=== PATIENT | male | born 1950 ===

== ENCOUNTER 2021-06-19 12:35 | Emergency (ER) | payer OTHER ==
[~2021-06-19] VITALS: Ht 180.3 cm; Wt 51.3 kg
[2021-06-19 13:37] LABS: BASOPHILS ABSOLUTE AUTO 0.03 K/mm3 (0.00-0.23); BASOPHILS PERCENT AUTO 1 % (0-2); EOSINOPHILS PERCENT AUTO 4 % (0-6); Hemoglobin 12.8 g/dL (13.5-17.5); IMMATURE GRAN ABSOLUTE AUTO 0.01 K/mm3 (0.00-0.10); IMMATURE GRAN PERCENT AUTO 0 % (0-1); LYMPHOCYTES ABSOLUTE AUTO 0.96 K/mm3 (0.84-5.20); LYMPHOCYTES PERCENT AUTO 20 % (21-46); MONOCYTES ABSOLUTE AUTO 0.42 K/mm3 (0.16-1.47); MONOCYTES PERCENT AUTO 9 % (4-13); Mean Corpuscular HGB 31.7 pg (26.0-34.0); Mean Corpuscular HGB Conc 32.8 g/dL (31.5-36.5); Mean Corpuscular Volume 97 fL (80-100); Mean Platelet Volume 9.7 fL (9.1-12.4); NEUTROPHILS ABSOLUTE AUTO 3.15 K/mm3 (1.96-9.15); NEUTROPHILS PERCENT AUTO 66 % (41-73); Platelet Count 292 K/mm3 (150-400); RDW Coefficient Variation 13.7 % (11.7-14.2); RDW Standard Deviation 48.9 fL (35.1-46.3); Red Blood Cell Count 4.04 M/mm3 (4.30-5.90); White Blood Cell Count 4.77 K/mm3 (4.00-11.30)
[2021-06-19 13:54] LABS: Alanine Aminotransfer (ALT/SGP 33 U/L (12-78); Albumin, Blood 3.7 g/dL (3.4-5.0); Albumin/Globulin Ratio 0.9 (0.8-1.8); Alk Phos 66 U/L (50-136); Anion Gap 5 mmol/L (6-16); Aspartate Aminotrans (AST/SGOT 25 U/L (12-37); Bilirubin, Total 0.7 mg/dL (0.1-1.0); Blood Urea Nitrogen 14 mg/dL (8-24); Bun/Creatinine Ratio 18.6 (12.0-20.0); CO2, Blood 29 mmol/L (21-32); Calcium, Blood 9.5 mg/dL (8.5-10.1); Chloride, Blood 105 mmol/L (98-108); Creatinine, Blood 0.75 mg/dL (0.60-1.20); Globulin, Blood 4.1 g/dL (2.2-4.0); Glomerular Filtration Rate >60 (60-); Glucose, Blood 88 mg/dL (70-99); Potassium, Blood 3.7 mmol/L (3.5-5.5); Sodium, Blood 139 mmol/L (136-145); Total Protein, Blood 7.8 g/dL (6.4-8.2)
[2021-06-19] MEDS ORDERED: GLAUCOMA DROPS (13:56)
[2021-06-19 13:57] LABS: Magnesium, Blood 2.5 mg/dL (1.6-2.4)
== END 2021-06-19 17:24 | disposition home or self-care (01) ==
LOC: ER 12:35
PROVIDERS: Emergency Medicine Emergency Medical Services; Student in an Organized Health Care Education/Training Program
DX: R19.5 Other fecal abnormalities (principal); D64.9 Anemia, unspecified; R63.4 Abnormal weight loss; Z68.1 Body mass index [BMI] 19.9 or less, adult
CPT/HCPCS: 74177; 80053; 83690; 83735; 85025; 99284-25; Q9967

== ENCOUNTER 2021-09-01 07:29 | Inpatient (IN) | payer OTHER ==
[~2021-09-01] VITALS: Ht 182.9 cm; Wt 63.2 kg
[~2021-09-01 07:29] MED LIST: GLAUCOMA DROPS
[2021-09-01 08:10] LABS: BASOPHILS ABSOLUTE AUTO 0.01 K/mm3 (0.00-0.23); BASOPHILS PERCENT AUTO 1 % (0-2); EOSINOPHILS ABSOLUTE AUTO 0.01 K/mm3 (0.00-0.68); EOSINOPHILS PERCENT AUTO 1 % (0-6); Hematocrit 45.2 % (37.0-53.0); Hemoglobin 14.5 g/dL (13.5-17.5); IMMATURE GRAN ABSOLUTE AUTO 0.01 K/mm3 (0.00-0.10); IMMATURE GRAN PERCENT AUTO 1 % (0-1); LYMPHOCYTES ABSOLUTE AUTO 0.25 K/mm3 (0.84-5.20); LYMPHOCYTES PERCENT AUTO 18 % (21-46); MONOCYTES ABSOLUTE AUTO 0.03 K/mm3 (0.16-1.47); MONOCYTES PERCENT AUTO 2 % (4-13); Mean Corpuscular HGB 31.7 pg (26.0-34.0); Mean Corpuscular HGB Conc 32.1 g/dL (31.5-36.5); Mean Corpuscular Volume 99 fL (80-100); Mean Platelet Volume 9.3 fL (9.1-12.4); NEUTROPHILS ABSOLUTE AUTO 1.11 K/mm3 (1.96-9.15); NEUTROPHILS PERCENT AUTO 78 % (41-73); Platelet Count 178 K/mm3 (150-400); RDW Coefficient Variation 12.9 % (11.7-14.2); RDW Standard Deviation 47.4 fL (35.1-46.3); Red Blood Cell Count 4.57 M/mm3 (4.30-5.90); White Blood Cell Count 1.42 K/mm3 (4.00-11.30)
[2021-09-01 08:39] LABS: Albumin, Blood 3.6 g/dL (3.4-5.0); Albumin/Globulin Ratio 0.9 (0.8-1.8); Bilirubin, Total 0.9 mg/dL (0.1-1.0); Bun/Creatinine Ratio 17.3 (12.0-20.0); Calcium, Blood 9.9 mg/dL (8.5-10.1); Creatinine, Blood 1.33 mg/dL (0.60-1.20); Globulin, Blood 4.2 g/dL (2.2-4.0); Potassium, Blood 3.5 mmol/L (3.5-5.5); Total Protein, Blood 7.8 g/dL (6.4-8.2)
[2021-09-01 09:02] LABS: Source, Urine Catheter
[2021-09-01 09:08] LABS: Appearance, Urine Cloudy (Clear); Bilirubin, Urine Neg (Neg); Blood, Urine 5+ (Neg); Color, Urine Amber (P-Yellow); Glucose Qualitative, Urine Neg (Neg); Ketones, Urine Neg (Neg); Leukocyte Esterase, Urine 3+ (Neg); Nitrite, Urine Neg (Neg); Protein, Urine 3+ (Neg); Specific Gravity, Urine 1.015 (1.003-1.022); Urobilinogen, Urine NORM (Normal)
[2021-09-01 09:20] LABS: Red Blood Cells, Urine 50-100 /hpf (0-2); White Blood Cells, Urine 50-100 /hpf (0-5)
[2021-09-01 09:22] LABS: Bacteria Many /hpf; Squamous Epithelial Cells Not Seen /hpf (Few)
[2021-09-01 10:20] LABS: Influenza A, PCR NEGATIVE (NEGATIVE); Influenza B, PCR NEGATIVE (NEGATIVE); Resp Syncytial Virus, PCR NEGATIVE (NEGATIVE); SARS-Cov-2 (COVID-19) PCR, MMC NEGATIVE (NEGATIVE)
--- NOTE | 2021-09-01 14:13 | NUR ---
1315 PT RECEIVED TO ROOM I WAS LEAVING FOR LUNCH. VS 95/63 O2 99 2L. PT ALERT, SELF,DATE, PLACE, FAMILY. LUNGS CRACKLES BASES. ON 2L O2. NO EDEMA. NO TELE H/R REG, NO MURMER NOTED. VAZQUEZ CATH DRAINING ABOUT 1/2 CUP RED FLUID. 1400 PT REMAINS AWAKE. TRANSFERRING PT TO PCU. PRESSURE 73/58. P 100. SAT 100% 2L. CALLING
--- NOTE | 2021-09-01 14:23 | NUR ---
PT BP DROPPED. TURNED FLUIDS UP. CALLED DR ARIAS. LAMIN ARREGUIN NOW. PCU OR ICU. OKAY BOLUS AND TRANSFER.
--- NOTE | 2021-09-01 15:01 | NUR ---
TRANSFERRED PT TO ICU 7 . REPORT GIVEN BEDSIDE TO RN.
--- NOTE | 2021-09-01 15:10 | NUR ---
PT TRANSFERRED TO ICU 7 FROM MEDICAL FLOOR. UPON ARRIVAL PT WAS FINISHING IVF BOLUS. SYSTOLIC BP'S WERE IN THE 90'S, MAP WAS >65. PT IS ALERT AND ORIENTEDx3, SLOW TO RESPOND TO QUESTIONS AND FOLLOWS DIRECTIONS. VAZQUEZ IN PLACE WITH RED TINGED DARK URINE DRAINING. PT ON 3L OF O2 MAINTAINING SPO2 >92%, DIFFICULT GETTING GOOD SPO2 READING DUE TO COOL FINGERS. MONITOR SHOWS PT TO BE IN SINUS TACH WITH RATES LOW 100'S. 2ND IV STARTED, PT ORIENTED TO ROOM. BED ALARM PLACED PT HAS FALLEN RECENTLY.
[2021-09-01] MEDS ORDERED: TIMDOROPSO BOTHEYES (17:19)
[2021-09-01] MEDS ORDERED: KETO.5OPSO RIGHTEYE (17:20)
[2021-09-01] MEDS ORDERED: LATA.005SO BOTHEYES (17:20)
--- NOTE | 2021-09-01 18:33 | NUR ---
SHIFT SUMMARY PT IS ALERT AND ORIENTED, FOLLOWS COMMANDS. PT NOTED TO HAVE SLIGHT TREMORS, WHICH FAMILY AND PT REPORT IS NORMAL FOR HIM. THIS AFTERNOON AFTER ARRIVAL TO ICU, PT WAS INITIATED ON 2MCG/MIN LEVOPHED AND HAS MAINTAINED MAP >65. PT HAS REQUIRED NO CHANGE IN O2 OF 3L, WHICH SP02 HAS BE ABOVE 92%. PT HAS 2 PIV AND HAS IVF RUNNING PER ORDER. MONITOR HAS SHOWN PT TO BE IN SINUS TACH WITH RATES, LOW 100'S. FAMILY REQUESTS FIRST CONTACT BE BRANDYN AZEVEDO (SISTER) CELL [phone], IF ANY OTHER CONCERNS CONTACT CORRIE (NEICE) [phone]. PT'S SISTER EXPRESSED CONCERN OVER PT'S ABILITY TO CARE FOR HIMSELF OUTSIDE OF THE HOSPITAL. THEY [facility]CTED THE [facility] AND HAVE BEEN ATTEMPTING TO OBTAIN PLACEMENT. THEY REPORT HE HAS AN APPOINTMENT WITH [facility] Sep. FAMILY ALSO REPORTS PT HAD DELUSIONS IN THE PAST AND BEEN AGGRESSIVE TOWARDS FAMILY.
--- NOTE | 2021-09-01 20:24 | NUR ---
PATIENT RESTING IN BED QUIETLY. A&O X4. MAEW. NO COMPLAINTS. BIOX 96% ON 3L/NC TITRATED DOWN TO 2L/NC PATIENT VERBALIZED THAT HE DOESN'T WEAR OXYGEN AT HOME. HYPOTENSION CONTINUES, LEVOPHED 2MCG TO KEEP MAP >65. PATIENT HAS CHRONIC VAZQUEZ. VAZQUEZ DRAINING TREY URINE WITH SEDIMENT.
--- NOTE | 2021-09-01 22:17 | NUR ---
DOCTOR TLTORI NOTIFIED OF BLOOD CX. PLAN TO CONTINUE SAME ANTIBIOTICS
[2021-09-02 03:27] LABS: Hemoglobin 11.4 g/dL (13.5-17.5); Mean Corpuscular HGB 31.5 pg (26.0-34.0); Mean Corpuscular HGB Conc 32.6 g/dL (31.5-36.5); Mean Corpuscular Volume 97 fL (80-100); Mean Platelet Volume 10.4 fL (9.1-12.4); Platelet Count 123 K/mm3 (150-400); RDW Coefficient Variation 13.4 % (11.7-14.2); Red Blood Cell Count 3.62 M/mm3 (4.30-5.90); White Blood Cell Count 32.22 K/mm3 (4.00-11.30)
[2021-09-02 03:43] LABS: BAND PERCENT MAN 27 % (0-8); BASOPHILS PERCENT MAN 0 % (0-2); EOSINOPHILS PERCENT MAN 0 % (0-6); LYMPHOCYTES ABSOLUTE MAN 0.32 K/mm3 (0.84-5.20); LYMPHOCYTES PERCENT MAN 1 % (21-46); METAMYELOCYTE ABSOLUTE MAN 0.64 K/mm3 (0.00-0.00); METAMYELOCYTE PERCENT MAN 2 % (0-0); MONOCYTES ABSOLUTE MAN 1.61 K/mm3 (0.16-1.47); MONOCYTES PERCENT MAN 5 % (4-13); MYELOCYTE ABSOLUTE MAN 0.64 K/mm3 (0.00-0.00); MYELOCYTE PERCENT MAN 2 % (0-0); NEUTROPHILS ABSOLUTE MAN 28.99 K/mm3 (1.96-9.15); SEG NEUTROPHILS PERCENT MAN 63 % (41-73); TOTAL CELLS COUNTED 100
[2021-09-02 04:30] LABS: Alanine Aminotransfer (ALT/SGP 34 U/L (12-78); Albumin, Blood 2.2 g/dL (3.4-5.0); Albumin/Globulin Ratio 0.7 (0.8-1.8); Alk Phos 66 U/L (50-136); Anion Gap 6 mmol/L (6-16); Aspartate Aminotrans (AST/SGOT 46 U/L (12-37); Bilirubin, Total 0.6 mg/dL (0.1-1.0); Blood Urea Nitrogen 28 mg/dL (8-24); CO2, Blood 22 mmol/L (21-32); Chloride, Blood 118 mmol/L (98-108); Creatinine, Blood 1.12 mg/dL (0.60-1.20); Globulin, Blood 3.3 g/dL (2.2-4.0); Glomerular Filtration Rate >60 (60-); Glucose, Blood 81 mg/dL (70-99); Sodium, Blood 146 mmol/L (136-145)
[2021-09-02 05:15] LABS: Total Protein, Blood 5.5 g/dL (6.4-8.2)
--- NOTE | 2021-09-02 06:41 | NUR ---
SUMMARY PATIENT AWAKE MOST OF THE NIGHT. REMAINS A&O X4 YET REPEATS QUESTIONS AT TIMES. HYPOTENSION CONTINUES LEVOPHED TITRATED TO 7 MCG. CONTINUES TO HAVE SMALL AMT OF BLOODY DRAINAGE FROM URETHRA, VAZQUEZ DRAINING SMALL AMT OF DARK TREY URINE WITH SEDIMENT.
--- NOTE | 2021-09-02 08:30 | NUR ---
ASSUMED CARE RECEIVED REPORT FROM CINTIA JUAREZ RN AT 0700. HE IS A&O X4, AND COOPERATIVE. HE IS SOMEWHAT SLOW TO RESPOND AND SEEMS A LITTLE FORGETFUL, QUESTIONS AND/OR INSTRUCTIONS NEED TO BE REPEATED OFTEN. LUNGS ARE CLEAR, 2L NC, SPO2 >92%, UNLABORED AND NO SOB/DYSPNEA. HR IS SR WITH MULTIPLE PVC'S AND BBB. LEVOPHED GTT ON AT 7MCG/MIN FOR HYPOTENSION, MAP >65. BOWEL TONES ACTIVE X4, PT ON VEGETARIAN DIET. VAZQUEZ PATENT, DRAINING TREY URINE TO GRAVITY. BLOOD COMING FROM URETHRA R/T TRAUMATIC REMOVAL PREVIOUSLY. ORDERS REVIEWED AND WILL TREAT PRESCRIBED.
--- NOTE | 2021-09-02 11:07 | NUR ---
PHONE CALL WITH PT'S SISTER, YUE NAZARIO, AND SHE IS REQUESTING HE HAVE A PSYCH EVAL DONE. ACCORDING TO HER, THE PT HAS HAD MULTIPLE PARANOID EPISODES AT HOME. THESE HAVE CAUSED HIM TO MISS MULTIPLE APPOINTMENTS WITH THE [facility], AND SHE BELIEVES IS INTERFERING WITH HIS HEALTH AND IS THE REASON HE PULLED HIS CATHETER OUT. CALL PLACED TO DR. ARIAS, AND PSYCH EVAL WITH DR. GOINS ORDERED.
--- NOTE | 2021-09-02 15:20 | NUR ---
PT HAS BEEN HAVING PVC'S T/O THE DAY AND RATE IS SLOWLY INCREASING FROM 70'S TO 90'S. CALL PLACED TO DR. ARIAS AND ORDERS GIVEN FOR 1000MG OF MAGNESIUM IVPB TO KEEP AT 2.0 OR ABOVE. WILL ALSO MONITOR TO ENSURE POTASSIUM MAINTAINS AT 4.0 OR ABOVE.
--- NOTE | 2021-09-02 18:14 | NUR ---
PT A&O X4 T/O SHIFT, PLEASANT AND COOPERATIVE. FEBRILE WITH LOW GRADE TEMP OF 99.8, MEDICATED WITH PRN PO TYLENOL. PT WAS UP TO THE CHAIR AND ABLE TO USE BEDSIDE COMMODE WITH WALKER AND MINIMAL ASSISTANCE, BUT DOES HAVE TO BE REDIRECTED OFTEN. 2L NC REMAINED ON T/O SHIFT, SPO2 >96%, LUNGS CLEAR. HR WAS SR TO ST, RATE 80-100'S, WITH FREQUENT PVC'S. 1GRAM OF MAGNESIUM ADMINISTERED. BP REMAINED STABLE WITH LEVOPHED OFF AT 1330, MAP >65. PT UP TO CHAIR OR UP IN BED FOR MEALS, BUT REPORTS SMALL APPETITE AND MINIMALLY ATE AT EACH MEAL. SMALL BOWEL MOVEMENT THIS SHIFT. VAZQUEZ CONTINUES TO BLEED FROM URETHRA, BUT DOES NOT APPEAR TO HAVE WORSENED, IS PATENT AND DRAINING TREY URINE. DENIED PAIN ALL SHIFT. WILL REPORT TO ONCOMING SHIFT.
--- NOTE | 2021-09-02 18:40 | NUR ---
PT'S NIECE, BRANDYN, AT BEDSIDE SHE NEEDED HIM TO SIGN TRAFFIC/COURT DOCUMENTS. THIS NURSE WENT TO REMOVE HIS DINNER TRAY AND THE NIECE WAS VERY CONCERNED WITH HOW LITTLE THE PT IS EATING. SHE TOLD HIM TO "TAKE ONE BITE OF MEATBALL OR ELSE SHE WOULD REMOVE HIS COOKIES FROM THE ROOM," YET HE CONTINUED TO REFUSE. SHE REPORTS HE DOES NOT EAT WELL AT HOME AND IS CONCERNED WITH NUTRITION. ADVISED HER THAT THERE ARE OTHER OPTIONS WE MAY PROVIDE IF MALNUTRITION IS A PROBLEM.
--- NOTE | 2021-09-02 20:10 | NUR ---
PATIENT RESTING QUIETLY IN BED, A&OX3 SLIGHTLY FORGETFUL AT TIMES. MAEW. TREMOR SEEN WITH ACTIVITY. LEVOPHED REMAINS OFF. PATIENT VERBALIZED THAT HE IS FEELING BETTER TODAY. IS AGREEABLE TO SLEEPING PILL TONIGHT TO HELP HIM SLEEP. VAZQUEZ REMAINS IN PLACE SMALL AMT OF BLEEDING FROM URETHRA CONTINUES, URINE DOUGHNUT ICER TREY COMPARED TO THIS MORNING.
--- NOTE | 2021-09-03 01:55 | NUR ---
PATIENT WAKING UP WITH INCREASED CONFUSION AND FEAR. EASILY REORIENTED. WHEN ASKED WHERE HE WAS TRYING TO GO PATIENT VERBALIZED THAT HE WOKE UP AND THOUGHT HE NEEDED TO GO BACK TO WHERE THE "CLASSES STARTED" PATIENT RELAXED AND ATTEMPTING TO GO BACK TO SLEEP AFTER REASSURED AGAIN THAT HE WAS SAFE IN THE HOSPITAL.
--- NOTE | 2021-09-03 04:45 | NUR ---
PATIENT AWAKE AND PARANOID THAT THE RUSSIANS ARE COMING IN TO GET HIM. PATIENT NEEDING FREQUENT REORIENTATION. PATIENT VERBALIZED THAT HE FEELS IF HE WAS ABLE TO SLEEP 4-5HRS. PATIENT HAS IN FACT ONLY SLEPT 1/2 TO 1 HR AT A TIME BEFORE WAKING UP FEARFUL AND NEEDING REASSURANCE THAT HE IS SAFE AND THAT WE DON'T NEED TO MOVE TO A DIFFERENT BUILDING TO GET HIS ANTIBIOTICS.
[2021-09-03 04:55] LABS: Hematocrit 32.3 % (37.0-53.0); Hemoglobin 10.6 g/dL (13.5-17.5); Mean Corpuscular HGB 31.8 pg (26.0-34.0); Mean Corpuscular HGB Conc 32.8 g/dL (31.5-36.5); Mean Corpuscular Volume 97 fL (80-100); Platelet Count 95 K/mm3 (150-400); RDW Coefficient Variation 13.2 % (11.7-14.2); RDW Standard Deviation 47.6 fL (35.1-46.3); Red Blood Cell Count 3.33 M/mm3 (4.30-5.90); White Blood Cell Count 19.85 K/mm3 (4.00-11.30)
[2021-09-03 05:33] LABS: Alanine Aminotransfer (ALT/SGP 31 U/L (12-78); Albumin/Globulin Ratio 0.7 (0.8-1.8); Alk Phos 103 U/L (50-136); Anion Gap 7 mmol/L (6-16); Aspartate Aminotrans (AST/SGOT 39 U/L (12-37); Bilirubin, Total 0.5 mg/dL (0.1-1.0); Blood Urea Nitrogen 23 mg/dL (8-24); CO2, Blood 22 mmol/L (21-32); Chloride, Blood 115 mmol/L (98-108); Creatinine, Blood 0.77 mg/dL (0.60-1.20); Glomerular Filtration Rate >60 (60-); Glucose, Blood 64 mg/dL (70-99); Magnesium, Blood 1.8 mg/dL (1.6-2.4); Phosphorus, Blood 1.9 mg/dL (2.5-4.9); Potassium, Blood 3.8 mmol/L (3.5-5.5); Sodium, Blood 144 mmol/L (136-145)
[2021-09-03 06:13] LABS: BAND PERCENT MAN 20 % (0-8); BASOPHILS PERCENT MAN 0 % (0-2); EOSINOPHILS PERCENT MAN 0 % (0-6); LYMPHOCYTES ABSOLUTE MAN 0.39 K/mm3 (0.84-5.20); LYMPHOCYTES PERCENT MAN 2 % (21-46); MONOCYTES ABSOLUTE MAN 0.79 K/mm3 (0.16-1.47); MONOCYTES PERCENT MAN 4 % (4-13); NEUTROPHILS ABSOLUTE MAN 18.65 K/mm3 (1.96-9.15); SEG NEUTROPHILS PERCENT MAN 74 % (41-73); TOTAL CELLS COUNTED 100
--- NOTE | 2021-09-03 06:35 | NUR ---
PATIENT UP TO BSC WITH 2 PERSON ASSIST. PASSING AN EXTRA LARGE FORMED FIRM BROWN BM. PATIENT SLIGHTLY UNSTEADY ON FEET WHILE CLEANING. PATIENT ABLE TO REMEMBER THAT HE IS IN THE HOSPITAL, BUT CONTINUES TO THINK HE IS CAPABLE OF MORE THAN HE IS. PATIENT BACK TO BED, AND RESTING QUIETLY AFTER BM
--- NOTE | 2021-09-03 06:42 | NUR ---
SUMMARY PATIENT REMAINS OFF LEVOPHED T/O NIGHT. WHILE SLEEPING BIOX DOWN TO 88-90% PLACED 2L/NC WHILE SLEEPING. PATIENT ABLE TO SLEEP OFF AND ON T/O NIGHT, BUT WHEN AWAKE VERY FEARFUL AND HAVING VISUAL HALLUCINATIONS. THE MORNING RETURNED PATIENT BECOMING LESS FEARFUL, BUT CONTINUES TO BE SPONTANEOUS AND FORGETTING TO CALL FOR ASSISTANCE WHEN NEEDING TO GET UP TO HAVE A BM. BED ALARM CONTINUES. PATIENTS GLUCOSE 64 ON CHEM THIS AM PATIENT ABLE TO EAT POPTART AND APPLE JUICE WITHOUT DIFFICULTY.
--- NOTE | 2021-09-03 10:42 | NUR ---
ASSSUMED CARE OF PATIENT AT APPROX 0700. PT ALERT, ORIENTED TO PERSON AND DATE/TIME; PT UNSURE OF PLACE AND EVENT. SLIGHT TREMOR NOTED WITH ACTIVITY. FORGETFUL AT TIMES. PT IS HAVING VISUAL HALLUCINATION, PT BLOWING AT SOMETHING AND WHEN ASKED HE STATES "I AM TRYING TO BLOW THAT CLOUD OUT". PT DENIES PAIN, CHEST PAIN, SOB, NASUEA AND DIZZINESS. LS CLEAR T/O, SPO2 >90% ON RA. SINUS WITH PAC's 80-90'S, BP STABLE. BS NORMOACTIVE T/O. PT HAS CHRONIC VAZQUEZ IN PLACE, PATENT AND DRAINING; SMALL AMOUNT OF BLEEDING NOTED IN BRIEFS, HAD PULLED OUT VAZQUEZ AT HOME PRIOR TO ADMISSION. BLE BROWNISH DISCOLORATION AND EXCORIATION TO RLE. OTHER VSS. NO OTHER ACUTE CHANGES NOTED. WILL CONTINUE TO MONITOR.
--- NOTE | 2021-09-03 11:10 | NUR ---
DR JUSTICETRATE AT BEDSIDE, NEW ORDER FOR PCU STATUS WITH TELE. WILL CONTINUE TO MONITOR.
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
--- NOTE | 2021-09-03 14:35 | NUR ---
PT CONTINUES WITH CONFUSION, PARANOIA, AUDITORY AND VISUAL HALLUCINATIONS. PT RESTING IN BED, APPEARS TO BE SLEEPING INTERMITTENTLY. WILL CONTINUE TO MONITOR.
--- NOTE | 2021-09-03 16:28 | NUR ---
DR GROVES TO BEDSIDE, NEW ORDERS FOR SEROQUEL. PT APPEARS AGGITATED, PULLING AT LINES AND ATTEMPTING TO GET OUT OF BED. MEDICATED x1 WITH PRN SEROQUEL. NO OTHER ACUTE CHANGES NOTED. WILL CONTINUE TO MONITOR.
--- NOTE | 2021-09-03 19:02 | NUR ---
PT LEFT ROOM AT APPROX 1845, TRANSFERED TO ROOM 353.
--- NOTE | 2021-09-04 03:50 | NUR ---
SHIFT SUMMARY PT WAS ADMITTED WITH SEPTIC SHOCK DUE TO UTI/PNEUMONIA.PT IS DNR.HE IS ON 2L NC AT NIGHT AND RA ON DAY.CHRONIC VAZQUEZ IN PLACE.HE IS NSR WITH SOME PVC'S WITH [address] NS INFUSING @75ML/HR.HE IS A&0X2,IMPULSIVE AND CONFUSED.DR YEN IS PSYCH CONSULT. PO SEROQUEL GIVEN PRN FOR AGITATION WITH GOOD EFFECT. 2 ASSIST TO BSC. [facility] PATIENT.
[2021-09-04 08:08] LABS: BASOPHILS ABSOLUTE AUTO 0.07 K/mm3 (0.00-0.23); BASOPHILS PERCENT AUTO 0 % (0-2); Hematocrit 32.1 % (37.0-53.0); LYMPHOCYTES ABSOLUTE AUTO 0.71 K/mm3 (0.84-5.20); LYMPHOCYTES PERCENT AUTO 5 % (21-46); MONOCYTES ABSOLUTE AUTO 0.45 K/mm3 (0.16-1.47); MONOCYTES PERCENT AUTO 3 % (4-13); Mean Corpuscular HGB 31.2 pg (26.0-34.0); Mean Corpuscular HGB Conc 34.3 g/dL (31.5-36.5); Mean Platelet Volume 10.6 fL (9.1-12.4); Platelet Count 87 K/mm3 (150-400); RDW Coefficient Variation 12.8 % (11.7-14.2); RDW Standard Deviation 42.4 fL (35.1-46.3); Red Blood Cell Count 3.53 M/mm3 (4.30-5.90); White Blood Cell Count 15.72 K/mm3 (4.00-11.30)
[2021-09-04 08:16] LABS: EOSINOPHILS ABSOLUTE AUTO 0.13 K/mm3 (0.00-0.68); EOSINOPHILS PERCENT AUTO 1 % (0-6); IMMATURE GRAN PERCENT AUTO 1 % (0-1); Mean Corpuscular Volume 91 fL (80-100); NEUTROPHILS ABSOLUTE AUTO 14.26 K/mm3 (1.96-9.15); NEUTROPHILS PERCENT AUTO 91 % (41-73)
[2021-09-04 08:41] LABS: Alanine Aminotransfer (ALT/SGP 28 U/L (12-78); Albumin, Blood 2.1 g/dL (3.4-5.0); Albumin/Globulin Ratio 0.6 (0.8-1.8); Alk Phos 126 U/L (50-136); Anion Gap 6 mmol/L (6-16); Aspartate Aminotrans (AST/SGOT 37 U/L (12-37); Bilirubin, Total 0.5 mg/dL (0.1-1.0); Blood Urea Nitrogen 11 mg/dL (8-24); Bun/Creatinine Ratio 18.7 (12.0-20.0); CO2, Blood 25 mmol/L (21-32); Calcium, Blood 8.2 mg/dL (8.5-10.1); Chloride, Blood 111 mmol/L (98-108); Creatinine, Blood 0.59 mg/dL (0.60-1.20); Globulin, Blood 3.6 g/dL (2.2-4.0); Glomerular Filtration Rate >60 (60-); Glucose, Blood 85 mg/dL (70-99); Magnesium, Blood 1.8 mg/dL (1.6-2.4); Potassium, Blood 2.9 mmol/L (3.5-5.5); Sodium, Blood 142 mmol/L (136-145); Total Protein, Blood 5.7 g/dL (6.4-8.2)
--- NOTE | 2021-09-04 18:46 | NUR ---
SHIFT SUMMARY: PT A/O X 2, ONE PERSON ASSIST WITH GAIT BELT TO TX TO CHAIR. PT PLEASANT AND COOPERATIVE TODAY. HE DID NOT EXHIBIT ANY S/S OF PARANOIA WITH ME TODAY. PT ABLE TO AROUSE EASILY WHEN NAPPING TO COMPLETE CARES. PT REPORTS HE IS NOT A VEGAN OR VEGETARIAN AND PREFERS TO EAT MEAT EXCEPT BEEF. HE DOES EAT DAIRY BUT REPLACES MILK WITH ALMOND MILK. PT REPORTS HE EATS EGGS. REUBEN HIS SISTER REPORTS THEY ARE CONSIDERING RETAIL CUSTODIAL ASSOCIATE CARE.
--- NOTE | 2021-09-05 04:39 | NUR ---
SHIFT SUMMARY PT WAS ADMITTED FOR SEPSIS SECONDARY TO UTI. DNR CODE. FUTURE CARE PLAN YET TO BE DECIDED.PT IS LESS AGITATED TODAY . NO NEW CONCERNS ON THIS SHIFT.
[2021-09-05 06:37] LABS: Alanine Aminotransfer (ALT/SGP 32 U/L (12-78); Albumin/Globulin Ratio 0.6 (0.8-1.8); Alk Phos 143 U/L (50-136); Anion Gap 6 mmol/L (6-16); Aspartate Aminotrans (AST/SGOT 43 U/L (12-37); Bilirubin, Total 0.5 mg/dL (0.1-1.0); Blood Urea Nitrogen 14 mg/dL (8-24); Bun/Creatinine Ratio 19.4 (12.0-20.0); CO2, Blood 28 mmol/L (21-32); Calcium, Blood 8.1 mg/dL (8.5-10.1); Chloride, Blood 111 mmol/L (98-108); Creatinine, Blood 0.72 mg/dL (0.60-1.20); Globulin, Blood 3.1 g/dL (2.2-4.0); Glomerular Filtration Rate >60 (60-); Glucose, Blood 97 mg/dL (70-99); Potassium, Blood 3.5 mmol/L (3.5-5.5); Sodium, Blood 145 mmol/L (136-145); Total Protein, Blood 5.1 g/dL (6.4-8.2)
[2021-09-05 06:59] LABS: Hematocrit 30.9 % (37.0-53.0); Hemoglobin 10.5 g/dL (13.5-17.5); Mean Corpuscular HGB 31.3 pg (26.0-34.0); Mean Corpuscular Volume 92 fL (80-100); Mean Platelet Volume 11.6 fL (9.1-12.4); Platelet Count 84 K/mm3 (150-400); RDW Coefficient Variation 12.9 % (11.7-14.2); RDW Standard Deviation 43.7 fL (35.1-46.3); Red Blood Cell Count 3.35 M/mm3 (4.30-5.90); White Blood Cell Count 11.24 K/mm3 (4.00-11.30)
[2021-09-05 10:21] LABS: BAND PERCENT MAN 9 % (0-8); BASOPHILS ABSOLUTE MAN 0.11 K/mm3 (0.00-0.23); BASOPHILS PERCENT MAN 1 % (0-2); EOSINOPHILS PERCENT MAN 0 % (0-6); LYMPHOCYTES ABSOLUTE MAN 0.78 K/mm3 (0.84-5.20); LYMPHOCYTES PERCENT MAN 7 % (21-46); MONOCYTES ABSOLUTE MAN 0.56 K/mm3 (0.16-1.47); MONOCYTES PERCENT MAN 5 % (4-13); NEUTROPHILS ABSOLUTE MAN 9.77 K/mm3 (1.96-9.15); SEG NEUTROPHILS PERCENT MAN 78 % (41-73); TOTAL CELLS COUNTED 100
--- NOTE | 2021-09-05 17:41 | NUR ---
SHIFT SUMMARY PT IS AAOX3, ABLE TO MAKE NEEDS KNOWN. PLEASANT AND COOPERATIVE TO CARE. NO C/O PAIN THIS SHIFT. NO C/O CP, SOB, OR N/V. PT MEDICATED FOR CONSTIPATION THIS SHIFT, TX HAS BEEN EFFECTIVE. PT DENIES ANY ABDOMINA DISCOMFORT AT THIS TIME. PT's VAZQUEZ IS PATENT AND DRAINING CLEAR YELLOW URINE. PT REQUIRES 1P ASSIST TO BSC. BED AT LOWEST POSITION W/ ALARM ON, CALL LIGHT WITHIN REACH.
--- NOTE | 2021-09-06 03:54 | NUR ---
DEBT COUNSELOR SUMMARY PATIENT HAD A FAIR SHIFT. WITH STABLE V/S. HE INITIALLY DID NOT WANT TO TAKE HIS MEDICATION BUT LATER AGREED TO TAKING THEM. HE LODGED NIL FRESH COMPLAINT. WILL CONTINUE TO MONITOR HIM.
[2021-09-06 04:43] LABS: BASOPHILS ABSOLUTE AUTO 0.03 K/mm3 (0.00-0.23); BASOPHILS PERCENT AUTO 0 % (0-2); EOSINOPHILS ABSOLUTE AUTO 0.19 K/mm3 (0.00-0.68); EOSINOPHILS PERCENT AUTO 3 % (0-6); Hematocrit 29.4 % (37.0-53.0); IMMATURE GRAN ABSOLUTE AUTO 0.09 K/mm3 (0.00-0.10); IMMATURE GRAN PERCENT AUTO 1 % (0-1); LYMPHOCYTES ABSOLUTE AUTO 1.27 K/mm3 (0.84-5.20); LYMPHOCYTES PERCENT AUTO 17 % (21-46); MONOCYTES ABSOLUTE AUTO 0.87 K/mm3 (0.16-1.47); MONOCYTES PERCENT AUTO 11 % (4-13); Mean Corpuscular HGB 31.3 pg (26.0-34.0); Mean Corpuscular Volume 92 fL (80-100); NEUTROPHILS ABSOLUTE AUTO 5.21 K/mm3 (1.96-9.15); NEUTROPHILS PERCENT AUTO 68 % (41-73); Platelet Count 94 K/mm3 (150-400); RDW Coefficient Variation 12.9 % (11.7-14.2); RDW Standard Deviation 43.5 fL (35.1-46.3); White Blood Cell Count 7.66 K/mm3 (4.00-11.30)
[2021-09-06 05:31] LABS: Alanine Aminotransfer (ALT/SGP 40 U/L (12-78); Albumin, Blood 1.9 g/dL (3.4-5.0); Albumin/Globulin Ratio 0.6 (0.8-1.8); Alk Phos 147 U/L (50-136); Anion Gap 7 mmol/L (6-16); Aspartate Aminotrans (AST/SGOT 49 U/L (12-37); Bilirubin, Total 0.4 mg/dL (0.1-1.0); Blood Urea Nitrogen 16 mg/dL (8-24); Bun/Creatinine Ratio 26.3 (12.0-20.0); CO2, Blood 27 mmol/L (21-32); Chloride, Blood 113 mmol/L (98-108); Creatinine, Blood 0.61 mg/dL (0.60-1.20); Globulin, Blood 3.1 g/dL (2.2-4.0); Glomerular Filtration Rate >60 (60-); Glucose, Blood 84 mg/dL (70-99); Potassium, Blood 3.2 mmol/L (3.5-5.5); Sodium, Blood 147 mmol/L (136-145)
[2021-09-06 15:33] LABS: Free Thyroxine 1.36 ng/dL (0.70-1.60)
[2021-09-06 15:51] LABS: Thyroid Stimulating Hormone 1.56 uIU/mL (0.360-4.800); Thyroxine (T4) 10.6 ug/dL (4.5-12.1); Triiodothyronine, Free 2.02 pg/mL (2.18-3.98)
--- NOTE | 2021-09-06 16:19 | NUR ---
SHIFT SUMMARY PT IS AO. PT DENIES PAIN, N/V, SOB. PT COOPERATIVE WITH CARE. PT APPETITE IS GOOD. PT TO HAVE AN MRI THIS CATINA. PT WORKED WITH PT/OT. PT UP TO CHAIR AD HASMUKH. PT IS ONE ASSIST FOR TRANSFERS AND GUARDIANSHIP LETTER HAS BEEN PLACED IN THE CHART. PT IS IN BED, CALL LIGHT IN REACH, LOW POSITION.
--- NOTE | 2021-09-07 05:24 | NUR ---
MENDER KNIT GOODS SUMMARY PATIENT HAD A CALM SHIFT. HE LODGED NIL COMPLAINTS. VITALS WERE STALE. HIS SISTER CALLED AND SHE WAS UPDATED. SAFETY MEASURES IN PLACE. WILL CONTINUE TO MONITOR HIM.
[2021-09-07 05:53] LABS: BASOPHILS ABSOLUTE AUTO 0.04 K/mm3 (0.00-0.23); BASOPHILS PERCENT AUTO 1 % (0-2); EOSINOPHILS ABSOLUTE AUTO 0.19 K/mm3 (0.00-0.68); EOSINOPHILS PERCENT AUTO 3 % (0-6); Hematocrit 29.1 % (37.0-53.0); Hemoglobin 9.8 g/dL (13.5-17.5); IMMATURE GRAN PERCENT AUTO 2 % (0-1); LYMPHOCYTES ABSOLUTE AUTO 1.33 K/mm3 (0.84-5.20); LYMPHOCYTES PERCENT AUTO 20 % (21-46); MONOCYTES ABSOLUTE AUTO 0.79 K/mm3 (0.16-1.47); MONOCYTES PERCENT AUTO 12 % (4-13); Mean Corpuscular HGB 31.3 pg (26.0-34.0); Mean Corpuscular HGB Conc 33.7 g/dL (31.5-36.5); Mean Corpuscular Volume 93 fL (80-100); Mean Platelet Volume 11.1 fL (9.1-12.4); NEUTROPHILS ABSOLUTE AUTO 4.38 K/mm3 (1.96-9.15); NEUTROPHILS PERCENT AUTO 64 % (41-73); Platelet Count 119 K/mm3 (150-400); RDW Coefficient Variation 13.1 % (11.7-14.2); RDW Standard Deviation 44.3 fL (35.1-46.3); Red Blood Cell Count 3.13 M/mm3 (4.30-5.90); White Blood Cell Count 6.83 K/mm3 (4.00-11.30)
[2021-09-07 06:20] LABS: Alanine Aminotransfer (ALT/SGP 41 U/L (12-78); Albumin, Blood 1.9 g/dL (3.4-5.0); Albumin/Globulin Ratio 0.5 (0.8-1.8); Alk Phos 152 U/L (50-136); Anion Gap 6 mmol/L (6-16); Aspartate Aminotrans (AST/SGOT 37 U/L (12-37); Bilirubin, Total 0.4 mg/dL (0.1-1.0); Blood Urea Nitrogen 12 mg/dL (8-24); Bun/Creatinine Ratio 16.7 (12.0-20.0); CO2, Blood 25 mmol/L (21-32); Calcium, Blood 8.3 mg/dL (8.5-10.1); Chloride, Blood 112 mmol/L (98-108); Creatinine, Blood 0.72 mg/dL (0.60-1.20); Globulin, Blood 3.7 g/dL (2.2-4.0); Glomerular Filtration Rate >60 (60-); Glucose, Blood 85 mg/dL (70-99); Phosphorus, Blood 2.7 mg/dL (2.5-4.9); Potassium, Blood 3.7 mmol/L (3.5-5.5); Sodium, Blood 143 mmol/L (136-145); Total Protein, Blood 5.6 g/dL (6.4-8.2)
--- NOTE | 2021-09-07 17:20 | NUR ---
SHIFT SUMMARY PT IS AO. PT DENIES PAIN, N/V, SOB. PT IS ONE ASSIST FOR TRANSFERS. PT DID NOT HAVE VISITORS THIS SHIFT. PT AWAITING GUARDIANSHIP. VAZQUEZ CATHETER REMOVED AND PENDING POST-REMOVAL VOID. PT IS IN CHAIR, CALL LIGHT IN REACH.
[2021-09-08 04:43] LABS: BASOPHILS ABSOLUTE AUTO 0.03 K/mm3 (0.00-0.23); BASOPHILS PERCENT AUTO 0 % (0-2); EOSINOPHILS ABSOLUTE AUTO 0.28 K/mm3 (0.00-0.68); EOSINOPHILS PERCENT AUTO 4 % (0-6); Hematocrit 30.5 % (37.0-53.0); Hemoglobin 10.3 g/dL (13.5-17.5); IMMATURE GRAN ABSOLUTE AUTO 0.15 K/mm3 (0.00-0.10); IMMATURE GRAN PERCENT AUTO 2 % (0-1); LYMPHOCYTES PERCENT AUTO 18 % (21-46); MONOCYTES ABSOLUTE AUTO 0.75 K/mm3 (0.16-1.47); MONOCYTES PERCENT AUTO 10 % (4-13); Mean Corpuscular HGB 31.3 pg (26.0-34.0); Mean Corpuscular HGB Conc 33.8 g/dL (31.5-36.5); Mean Corpuscular Volume 93 fL (80-100); Mean Platelet Volume 10.6 fL (9.1-12.4); NEUTROPHILS ABSOLUTE AUTO 5.17 K/mm3 (1.96-9.15); NEUTROPHILS PERCENT AUTO 67 % (41-73); Platelet Count 152 K/mm3 (150-400); RDW Standard Deviation 44.1 fL (35.1-46.3); Red Blood Cell Count 3.29 M/mm3 (4.30-5.90); White Blood Cell Count 7.78 K/mm3 (4.00-11.30)
--- NOTE | 2021-09-08 04:46 | NUR ---
WOOD PRESERVING PLANT LABORER SUMMARY PATIENT MUCH MORE COOPERATIVE WITH CARE. VAZQUEZ WAS REMOVED DURING DAY SFIFT. AND PATIENT COULD NOT VOID SPONTANEOUSLY AND ON BLADDER SCANNING PT 840MLS OF URINE NOTED. DR. VILLALOBOS WAS INFORMED AND HE SAID TO STRAIGHT CATH THE PATIENT AND PERFORM ANOTHER BLADDER SCAN. AND IF >400 UI=RINE IS RETAINED TO PLACE A VAZQUEZ. MEANWHILE PATIENT STILL DISCHARGING ED RED BLOOD IN THE URETHRAL MEATUS. VITALS ARE STABLE OVERNIGHT. WILL CONTINUE TO MONITOR PATIENT NO OTHER COMPLAINTS LODGED.
[2021-09-08 05:09] LABS: Anion Gap 6 mmol/L (6-16); Blood Urea Nitrogen 13 mg/dL (8-24); Bun/Creatinine Ratio 19.1 (12.0-20.0); CO2, Blood 24 mmol/L (21-32); Calcium, Blood 8.2 mg/dL (8.5-10.1); Chloride, Blood 111 mmol/L (98-108); Creatinine, Blood 0.68 mg/dL (0.60-1.20); Glomerular Filtration Rate >60 (60-); Glucose, Blood 83 mg/dL (70-99); Potassium, Blood 3.8 mmol/L (3.5-5.5); Sodium, Blood 141 mmol/L (136-145)
[2021-09-08 10:50] LABS: Source, Urine Catheter
[2021-09-08 10:54] LABS: Appearance, Urine Clear (Clear); Bilirubin, Urine Neg (Neg); Blood, Urine 3+ (Neg); Color, Urine Yellow (P-Yellow); Glucose Qualitative, Urine Neg (Neg); Ketones, Urine Neg (Neg); Leukocyte Esterase, Urine Neg (Neg); Nitrite, Urine Neg (Neg); Protein, Urine 1+ (Neg); Urobilinogen, Urine NORM (Normal)
[2021-09-08 11:03] LABS: Amorphous Mod (0-Heavy); Bacteria Few /hpf; Calcium Oxalate Crystals Rare /hpf; Squamous Epithelial Cells Not Seen /hpf (Few)
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
--- NOTE | 2021-09-09 06:45 | NUR ---
SHIFT SUMMARY PT IS A 71 Y/O MALE, ADMITTED FOR SEPSIS R/T UTI. HE IS A&O X 2, PARANOID. NO C/O ACUTE PAIN, NAUSEA OR SOB. VITAL SIGNS STABLE. NO ACUTE CHANGES IN PT CONDITION NOTED DURING THE NIGHT. WILL CONTINUE TO MONITOR AND TREAT PER EMAR UNTIL HAND OFF TO DAY SHIFT RN.
[2021-09-09 10:39] LABS: BASOPHILS ABSOLUTE AUTO 0.02 K/mm3 (0.00-0.23); BASOPHILS PERCENT AUTO 0 % (0-2); EOSINOPHILS ABSOLUTE AUTO 0.15 K/mm3 (0.00-0.68); EOSINOPHILS PERCENT AUTO 2 % (0-6); Hematocrit 33.5 % (37.0-53.0); Hemoglobin 11.2 g/dL (13.5-17.5); IMMATURE GRAN ABSOLUTE AUTO 0.13 K/mm3 (0.00-0.10); IMMATURE GRAN PERCENT AUTO 2 % (0-1); LYMPHOCYTES ABSOLUTE AUTO 0.99 K/mm3 (0.84-5.20); LYMPHOCYTES PERCENT AUTO 12 % (21-46); MONOCYTES ABSOLUTE AUTO 0.47 K/mm3 (0.16-1.47); MONOCYTES PERCENT AUTO 6 % (4-13); Mean Corpuscular HGB 31.1 pg (26.0-34.0); Mean Corpuscular HGB Conc 33.4 g/dL (31.5-36.5); Mean Corpuscular Volume 93 fL (80-100); Mean Platelet Volume 10.5 fL (9.1-12.4); NEUTROPHILS ABSOLUTE AUTO 6.23 K/mm3 (1.96-9.15); NEUTROPHILS PERCENT AUTO 78 % (41-73); Platelet Count 218 K/mm3 (150-400); RDW Coefficient Variation 12.6 % (11.7-14.2); RDW Standard Deviation 43.4 fL (35.1-46.3); White Blood Cell Count 7.99 K/mm3 (4.00-11.30)
[2021-09-09 11:02] LABS: Anion Gap 5 mmol/L (6-16); Blood Urea Nitrogen 9 mg/dL (8-24); Bun/Creatinine Ratio 12.2 (12.0-20.0); CO2, Blood 28 mmol/L (21-32); Calcium, Blood 8.5 mg/dL (8.5-10.1); Chloride, Blood 106 mmol/L (98-108); Creatinine, Blood 0.74 mg/dL (0.60-1.20); Glomerular Filtration Rate >60 (60-); Glucose, Blood 131 mg/dL (70-99); Potassium, Blood 4.2 mmol/L (3.5-5.5); Sodium, Blood 139 mmol/L (136-145)
--- NOTE | 2021-09-09 17:33 | NUR ---
UPDATE FROM NIECE: SPOKE WITH THE PATIENT'S NIECE JULISA ABRAHAM ([phone]). SHE REPORTED TO THE RN THAT SHE LIVES BELOW HER UNCLE. SHE PROVIDES SOME HOUSEKEEPING AND SUPPORT FOR THE PATIENT SHE IS ABLE. SHE WORKS DRUG SAFETY SCIENTIST AND IS NOT A CANDIDATE TO PROVIDE PART OR DRUG SAFETY SCIENTIST CARE TO THE PATIENT ASIDE FROM ASSISTING THE MEDICATION IN THE MORNING AND EVENING. SHE REPORTED THAT THEY DO NOT HAVE THE FINANCES TO HIRE A DRUG SAFETY SCIENTIST CAREGIVER. SHE REPORTED THAT YUE (PATIENT'S SISTER) IS LOOKING AT GETTING THE PATIENT CONNECTED WITH A PUBLIC GUARDIAN AND [employer]. THE NIECE IS VERY SUPPORTIVE OF THE PATIENT AND HAS A GOOD RAPPORT WITH THE PATIENT.
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
--- NOTE | 2021-09-10 00:15 | NUR ---
PT up wandering in gavin. He has fairly steady gait, hand held assist for ambulation. tolerated well. Randhawa cath patent drains large amts of cloudy yellow urine. [employer] [place]. Confused. Room air CAP denies SOB.
--- NOTE | 2021-09-10 03:38 | NUR ---
71 year old [employer] continues with intermittant confusion, delusional statements .Says are we really at [facility]? I thought [place] PT reorients easily. PT up x 1 amb with SBA in [place] with fairly steady gait. Has chronic [place] for retention changed 09/08/2021. DC planning for [place] who has Family support, Niece cares for PT. on multiple eye meds. Guardianship Papers on chart.
[2021-09-10 06:11] LABS: BASOPHILS ABSOLUTE AUTO 0.03 K/mm3 (0.00-0.23); BASOPHILS PERCENT AUTO 1 % (0-2); EOSINOPHILS ABSOLUTE AUTO 0.21 K/mm3 (0.00-0.68); EOSINOPHILS PERCENT AUTO 3 % (0-6); Hematocrit 33.9 % (37.0-53.0); Hemoglobin 11.4 g/dL (13.5-17.5); IMMATURE GRAN ABSOLUTE AUTO 0.19 K/mm3 (0.00-0.10); IMMATURE GRAN PERCENT AUTO 3 % (0-1); LYMPHOCYTES ABSOLUTE AUTO 1.64 K/mm3 (0.84-5.20); LYMPHOCYTES PERCENT AUTO 25 % (21-46); MONOCYTES ABSOLUTE AUTO 0.64 K/mm3 (0.16-1.47); MONOCYTES PERCENT AUTO 10 % (4-13); Mean Corpuscular HGB 31.2 pg (26.0-34.0); Mean Corpuscular HGB Conc 33.6 g/dL (31.5-36.5); Mean Corpuscular Volume 93 fL (80-100); NEUTROPHILS ABSOLUTE AUTO 3.77 K/mm3 (1.96-9.15); NEUTROPHILS PERCENT AUTO 58 % (41-73); Platelet Count 247 K/mm3 (150-400); RDW Coefficient Variation 12.8 % (11.7-14.2); RDW Standard Deviation 43.8 fL (35.1-46.3); Red Blood Cell Count 3.65 M/mm3 (4.30-5.90); White Blood Cell Count 6.48 K/mm3 (4.00-11.30)
[2021-09-10 06:43] LABS: Anion Gap 5 mmol/L (6-16); Blood Urea Nitrogen 11 mg/dL (8-24); Bun/Creatinine Ratio 14.4 (12.0-20.0); CO2, Blood 29 mmol/L (21-32); Calcium, Blood 8.8 mg/dL (8.5-10.1); Chloride, Blood 108 mmol/L (98-108); Creatinine, Blood 0.76 mg/dL (0.60-1.20); Glomerular Filtration Rate >60 (60-); Glucose, Blood 83 mg/dL (70-99); Potassium, Blood 4.2 mmol/L (3.5-5.5); Sodium, Blood 142 mmol/L (136-145)
--- NOTE | 2021-09-10 18:25 | NUR ---
SHIFT SUMMARY: NO ACUTE EVENTS. A&O X 3, PLEASANT AND COOPERATIVE. NO PARANOIA NOTED. VAZQUEZ DRAINING ADEQUATE URINE. DENIED PAIN. GOT UP TO CHAIR WITH SBA FOR MEALS. WORKED WITH PT/OT. NO PRN PSYCH MEDICATIONS REQUIRED.
--- NOTE | 2021-09-11 04:31 | NUR ---
PT REMAINS AAOX2. REMAINS ON ROOM AIR. POWERGLIDE TO LEFT UPPER ARM, SITE BENIGN. CHRONIC VAZQUEZ CATHETER IS PATENT, DRAINING URINE VIA GRAVITY. NO COMPLAINTS VOICED AND NO SIGNS OF PAIN OR DISCOMFORT EXHIBITED. PT TOLERATED ROUTINE MEDICATIONS WELL. VSS. BED ALARM IS ACTIVATED. BED IS IN LOW POSITION WITH THE CALL LIGHT WITHIN EASY REACH. WILL CONTINUE TO MONITOR.
--- NOTE | 2021-09-11 05:18 | NUR ---
ATTEMPTED TO DRAW MORNING LABS FROM PT'S MAYANK CHIRINOS UNSUCCESSFULLY. THERE IS NO BLOOD RETURN. I CALLED LAB, SPOKE WITH REYNOLD, WHO STATED THAT A RUBBER LINER WOULD COME AND DRAW THE LABS VIA VENIPUNCTURE. PT UPDATED ON PLAN OF CARE.
[2021-09-11 05:33] LABS: BASOPHILS ABSOLUTE AUTO 0.03 K/mm3 (0.00-0.23); BASOPHILS PERCENT AUTO 1 % (0-2); EOSINOPHILS ABSOLUTE AUTO 0.15 K/mm3 (0.00-0.68); EOSINOPHILS PERCENT AUTO 3 % (0-6); Hematocrit 34.7 % (37.0-53.0); Hemoglobin 11.6 g/dL (13.5-17.5); IMMATURE GRAN ABSOLUTE AUTO 0.12 K/mm3 (0.00-0.10); IMMATURE GRAN PERCENT AUTO 2 % (0-1); LYMPHOCYTES ABSOLUTE AUTO 1.62 K/mm3 (0.84-5.20); LYMPHOCYTES PERCENT AUTO 27 % (21-46); MONOCYTES ABSOLUTE AUTO 0.55 K/mm3 (0.16-1.47); MONOCYTES PERCENT AUTO 9 % (4-13); Mean Corpuscular HGB 31.4 pg (26.0-34.0); Mean Corpuscular HGB Conc 33.4 g/dL (31.5-36.5); Mean Corpuscular Volume 94 fL (80-100); Mean Platelet Volume 10.2 fL (9.1-12.4); NEUTROPHILS ABSOLUTE AUTO 3.56 K/mm3 (1.96-9.15); NEUTROPHILS PERCENT AUTO 59 % (41-73); Platelet Count 279 K/mm3 (150-400); RDW Coefficient Variation 12.8 % (11.7-14.2); RDW Standard Deviation 43.8 fL (35.1-46.3); White Blood Cell Count 6.03 K/mm3 (4.00-11.30)
[2021-09-11 06:26] LABS: Anion Gap 7 mmol/L (6-16); Blood Urea Nitrogen 15 mg/dL (8-24); Bun/Creatinine Ratio 21.4 (12.0-20.0); CO2, Blood 27 mmol/L (21-32); Calcium, Blood 8.8 mg/dL (8.5-10.1); Chloride, Blood 107 mmol/L (98-108); Glomerular Filtration Rate >60 (60-); Glucose, Blood 79 mg/dL (70-99); Magnesium, Blood 2.1 mg/dL (1.6-2.4); Potassium, Blood 4.1 mmol/L (3.5-5.5); Sodium, Blood 141 mmol/L (136-145)
--- NOTE | 2021-09-11 18:10 | NUR ---
SHIFT SUMMARY: NO ACUTE EVENTS. DENIED PAIN. A&O X 2, INTERMITTENT CONFUSION AND PARANOIA, CAN ONLY FOLLOW ONE DIRECTION AT A TIME. WORKED WITH PT/OT, AMBULATED IN HALLWAY X 1, GAIT UNSTEADY. DECLINED BATH/SHOWER AGAIN TODAY. DID NOT REQUIRE PRN MEDICATIONS. R EYE CONJUCTIVITIS APPEARS IMPROVED TODAY.
--- NOTE | 2021-09-12 05:02 | NUR ---
SHIFT SUMMARY PT RESTED WELL FOR MOST OF THE NIGHT. PT REMAINS WITH SOME CONFUSION WELL IMPULSIVITY. ABLE TO FOLLOW SIMPLE DIRECTIONS EXPLAINED SLOWLY. DENIES PAIN. SCHEDULED MEDICATIONS LAST NIGHT WERE GIVEN WITHOUT INCIDENT. RIGHT EYE CONJUNCTIVITIS APPEARS TO BE IMPROVING. LUE POWERGLIDE IN PLACE, THE SITE BENIGN, NO BLOOD RETURN BUT FLUSHES EASILY. CHRONIC VAZQUEZ CATHETER PATENT, DRAINING URINE VIA GRAVITY. BED ALARM ACTIVATED. BED IS IN LOW POSITION WITH THE CALL LIGHT WITHIN EASY REACH. WILL CONTINUE TO MONITOR.
--- NOTE | 2021-09-12 18:20 | NUR ---
SHIFT SUMMARY PT IS CURRENTLY PARANOID THAT "PEOPLE ARE COMING TO GET HIM." HE WAS GIVEN ONE DOSE OF SERAQUEL AND WILL MOST LIKELY RECIEVE MORE BEFORE BED. HE IS EASILY DIRECTABLE. HE DOES NOT COMPLAIN OF PAIN OR ANY ISSUES WITH HIS RIGHT EYE. HE HAS BEEN RESTING IN BED MOST OF THE DAY. WILL CONTINUE TO MONITOR.
--- NOTE | 2021-09-13 04:57 | NUR ---
SHIFT SUMMARY PT WITH SEVERAL EPISODES OF PARANOIA AND AUDITORY/VISUAL HALLUCINATIONS LAST NIGHT. REMAINS IMPULSIVE, JUMPING OUT OF BED. PT WAS RE-DIRECTABLE AFTER SEVERAL MINUTES. PT CONFUSED AND APPEARS FRIGHTENED AT TIMES LAST NIGHT. PT PROVIDED WITH REASSURANCE AND RE-ORIENTED. MEDICATED PER EMAR NEEDED. LUE POWERGLIDE WITH NS AT KVO ORDERED. CHRONIC VAZQUEZ CATHETER REMAINS IN PLACE, PATENT, DRAINING URINE VIA GRAVITY. LAST BM WAS 09/12/21. PT DENIED PAIN AND DISCOMFORT. BED ALARM REMAINS ACTIVATED. BED IS IN LOW POSITION WITH THE CALL LIGHT WITHIN EASY REACH. WILL CONTINUE TO MONITOR.
--- NOTE | 2021-09-13 16:43 | NUR ---
SHIFT SUMMARY NO ACUTE CHANGES THIS SHIFT. PT HAS BEEN QUIETLY SITTING IN BED. ONLY ONE EPISODE OF GETTING UP OUT OF BED AND HALLUCINATING. HE IS STILL REFUSING A SHOWER CLAIMING HE CAN GET ONE AT HOME. WILL CONTINUE TO MONITOR.
--- NOTE | 2021-09-14 04:28 | NUR ---
SHIFT SUMMARY PT CURRENTLY RESTING IN BED WITH EYES CLOSED. PT HAD EPISODES OF AUDITORY AND VISUAL HALLUCINATIONS, PARANOIA AND CONFUSION LAST NIGHT. PT WAS RE-DIRECTED AND HE WAS REASSURED THAT HE WAS SAFE. PT ALSO MEDICATED WITH PRN MEDICATION PER EMAR WITH GOOD EFFECT. LUE POWERGLIDE WITH IV NS INFUSING AT KVO; IV SITE BENIGN. VAZQUEZ CATHETER PATENT, DRAINING URINE VIA GRAVITY. BED ALARM REMAINS ACTIVATED WITH THE CALL LIGHT WITHIN EASY REACH. WILL CONTINUE TO MONITOR.
--- NOTE | 2021-09-14 17:23 | NUR ---
Shift Summary A/Ox3, some paranoia. Patient thought he was going home today. Has been refusing showers per MANAGER INSURANCE citing he will take it when he goes home. In bed most of the day refusing to sit up in chair for meals, agreeable to at least sit up for dinner. Impulsive, poor safety awareness. Patient climbed out of bed and headed stright for the door unaware that NS was still infusing. This almost caused lost of IV access. Does not wait for staff to place gaitbelt around waist. Appetite is somewhat ok. Patient denies being vegetarian to this RN. Denies pain, nausea, vomiting. WCTM.
--- NOTE | 2021-09-14 20:42 | NUR ---
PT WITH WORSENED CONFUSION, PARANOIA, AUDITORY AND VISUAL HALLUCINATIONS; PT IS AN ELOPEMENT RISK, GETTING OUT OF BED AND TRYING TO LEAVE THE UNIT. VISITOR SERVICES SPECIALIST HOSPITALIST WAS NOTIFIED AT ABOUT 2014, NEW ORDERS RECEIVED. BED ALARM REMAINS ACTIVATED. PT FREQUENTLY TRYING TO GET OUT OF BED, VERBALIZES FEAR OF "PREDATORS AND HOMOSEXUALS" THAT ARE IN THE HALLWAY THAT WILL "KNIFE" HIM. PT RE-DIRECTED AND REASSURED CONTINUOUSLY. PT REQUIRING ASSISTANCE ABOUT EVERY 5 MINUTES OR LESS.
--- NOTE | 2021-09-15 05:49 | NUR ---
SHIFT SUMMARY LAST NIGHT, PT WAS EXTREMELY PARANOIA, AGITATED AND RESTLESS; HAVING AUDITORY AND VISUAL HALLUCINATIONS AND VOICED THE HE WAS FEARFUL. PT WAS JUMPING OUT OF BED AND ATTEMPTING TO LEAVE THE UNIT-A HIGH ELOPMENT RISK. HOSPITALIST WAS NOTIFIED AND ORDERS WERE RECEIVED AND CARRIED OUT. PT RECEIVED ATIVAN 1MG IV WITH GOOD EFFECT. PT CALMED DOWN AND REMAINED IN BED UNTIL HE EVENTUALLY FELL ASLEEP. LUE POWERGLIDE SITE BENIGN. VAZQUEZ CATHETER PATENT, DRAINING URINE VIA GRAVITY. BED ALARM REMAINS ACTIVATED, BED IN LOW POSITION WITH THE CALL LIGHT WITHIN EASY REACH. WILL CONTINUE TO MONITOR.
--- NOTE | 2021-09-15 19:26 | NUR ---
SHIFT SUMMARY: PT A/O X 2-3, ONE PERSON ASSIST WITH GAIT BELT AND WALKER. PT VERY STEADY ON FEET TODAY WHILE AMBULATING WOODALL. PT HAS HAD DARK YELLOW URINE TODAY. ENCOURAGED HIM TO DRINK FLUIDS THROUGH OUT THE DAY. PT WAS SLEEPY THIS MORNING AND AWOKE AROUND 9:45 AM. GAVE PRN SEROQUEL DUE TO REPORTS OF SEVERE BEHAVIORS LAST NIGHT DUE TO FEARFUL DELUSIONS AND HALLUCINATIONS. PT WAS VERY PLEASANT AND COOPERATIVE T/OUT THE DAY AND DID NOT REPORT ANY DELUSIONS, FEARS OR HALLUCINATIONS. NO ACUTE CONCERNS TODAY.
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
--- NOTE | 2021-09-16 18:26 | NUR ---
SHIFT SUMMARY; PATIENT HAD UNEVENTFUL DAY. HE STAYED ON BEDREST MOST OF DAY. SLEPT OFF AND ON ALL DAY. PATIENT UP IN CHAIRS FOR MEALS. TAKES HIS PILLS WHOLE WITH WATER. PATIENT IS ORIENTED X 4 TODAY. HIS NEICE COMES TO VISIT TODAY. DISCUSSING HER NEED FOR GUARDIANSHIP AND ASKING JESSICA IF HE AGREES AND JESSICA SAYS YES HE WILL GO TO [facility]. TOYA CEJA RN
--- NOTE | 2021-09-17 04:34 | NUR ---
SHIFT SUMMARY PT PLEASANT. SLEEPING MOST OF THE NIGHT. PT DID SET OFF BED ALARM BY GETTING OUT OF BED IN MIDDLE OF NIGHT. REDIRECTED TO GET BACK IN BED AND SLEEP MORE. NO ACUTE CHANGES. R EYE IS STILL CRUSTED AND RED. CALL LIGHT WITHIN REACH. WILL CONTINUE TO MONITOR.
--- NOTE | 2021-09-17 17:23 | NUR ---
SHIFT SUMMARY; PATIENT WAS ORIENTED MOST OF DAY HOWEVER DID HAVE ONE EPISODE OF NOTE WHEN HE CAME TO DOOR OF ROOM ASKING "KEEP THOSE HOMO'S AWAY FROM ME THEY WANT TO KILL ME" THERE WAS NO ONE IN HALLWAY AT TIME. PATIENT RETURNED TO BED WITHOUT DIFFICULTY. HAD NO APPETITE DURING DAY AND ATE MINIMALLY FROM BOTH AM AND LUNCH TIME MEALS. SISTER JUJU CALLS FROM [place] AND RELATES THAT FAMILY IS POOLING THE PAITENTS ASSETS AND TRYING TO ARRANGE MEMORY CARE PLACEMENT. TOYA CEJA RN
--- NOTE | 2021-09-18 04:05 | NUR ---
SHIFT SUMMARY PT HAS RESTED MOST OF THE NIGHT, HE DENIES PAIN OR NEEDS. VAZQUEZ PATENT AND DRAINING. VITALS STABLE, ASSESSMENT UNCHANGED. BED IN LOWEST POSITION, CALL LIGHT WITHIN REACH.
--- NOTE | 2021-09-18 17:26 | NUR ---
SUMMARY PT SITTING UP IN BED WATCHING TV, PT HAS BEEN COOPERATIVE WITH CARE, IMPULSIVE AND DOES NOT CONSISTENTLY USE THE CALL LIGHT, PT UP WITH 1P ASSIST, PT HAS A VAZQUEZ CATHETER, POOR OUTPUT, PT REPORTS HE EMPTIED IT IN THE TOILET, UNSURE OF OUTPUT, VSS, NO COMPLAINTS, WILL CONT TO MONITOR
--- NOTE | 2021-09-19 17:16 | NUR ---
PT STATES SISTER AND HUSB ARE SHAN GUIDO AND KAYLA. THIN[place] IN [place] AT THIS TIME. NOT SURE WHEN BACK. HAS AMBUALTED TO BATHROOM. SEVERAL TIMES TODAY. 1 ASST FWW. IS REDIRECTABLE. BUT IMPULSIVE. NO NEW CONCERNS NOTED. BED INLOW POSITIOIN, CALLLITE IN REACH, CALLS APROP
--- NOTE | 2021-09-19 19:19 | NUR ---
BILL REQUESTING LETTER OF RECOMMENDATION FOR [facility] FROM DR JOHNUFF
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
--- NOTE | 2021-09-20 19:09 | NUR ---
PT PLEASANT TODAY. DID NOT HAVE ANY PAIN REQUESTS. AMBULATING TO BATHROOM WITH MIN ASST. FWW AND GAIT BELT. BED IN LOW POSITION, CALL LITE IN REACH, BED ALARM ON FOR SAFETY
--- NOTE | 2021-09-21 06:24 | NUR ---
SHIFT SUMMARY: VSS, PATIENT IS A&O TO SELF. SANDIE VAZQUEZ IS PATENT FOR A CLOUDY YELLOW URINE. NO COMPLAITS OF PAIN AND NO PARANOID THOUGHTS OR ACTIONS THIS SHIFT. BED ALARM IS ON FOR SAFETY.
--- NOTE | 2021-09-21 07:24 | NUR ---
ASSUMED CARE: PT RESTING QUIETLY AT THIS TIME. NO ACUTE NEEDS OR CONCERNS.
--- NOTE | 2021-09-21 17:48 | NUR ---
SHIFT SUMMARY: PT AMBULATORY WITH WALKER, CHRONIC VAZQUEZ. DOES NOT USE CALL LIGHT, IMPULSIVE, SAFETY ALARMS IN PLACE. PLAN IS FOR DC WHEN GUARDIANSHIP AND PLACEMENT ESTABLISHED. NO ACUTE NEEDS OR CONCERNS AT THIS TIME.
--- NOTE | 2021-09-22 05:39 | NUR ---
SHIFT SUMMARY ALERT. CONFUSED AND PARANOID AT TIMES. IMPULSIVE. ABLE TO MAKE NEEDS KNOWN. MOSTLY RE-DIRECTABLE. REMINDED TO UTILIZE CALL LIGHT WHICH DID NOT HAPPEN. APPEARED TO REST WELL OVERNIGHT AFTER WARM BLANKET APPLIED. VAZQUEZ PATENT AND DRAINING TO GRAVITY. BED REMAINS IN LOWEST POSITION; ALARM ON. CALL LIGHT AND BELONGINGS WITHIN REACH. REPORT TO ONCOMING RN.
--- NOTE | 2021-09-22 07:13 | NUR ---
ASSUMED CARE: PT LAYING IN BED, AWAKE, WATCHING TV. NO ACUTE NEEDS AT THIS TIME.
--- NOTE | 2021-09-22 18:16 | NUR ---
SHIFT SUMMARY: PT REQUIRING BED AND CHAIR ALARMS DUE TO IMPULSIVENESS. AWAITING GUARDIANSHIP PAPERS FOR SAFE DISCHARGE PLANS. NO ACUTE NEEDS OR CONCERNS AT THIS TIME.
--- NOTE | 2021-09-23 04:27 | NUR ---
SHIFT SUMMARY ALERT. CONTINUES TO BE CONFUSED AND PARANOID AT TIMES. ABLE TO MAKE NEEDS KNOWN. IMPULSIVE YET RE-DIRECTABLE. REMINDED TO UTILIZE CALL SYSTEM. APPEARED TO REST OVERNIGHT. NO ACUTE CHANGES NOTED. BED REMAINS IN LOWEST POSITION; ALARM ON. CALL LIGHT AND BELONGINGS WITHIN REACH. REPORT TO ONCOMING RN.
--- NOTE | 2021-09-23 17:29 | NUR ---
SHIFT SUMMARY NO ACUTE CHANGES NOTED TO PT THIS SHIFT. PT IS AAO TO SELF AND SITUATION. PT HAS EPISODES OF ANXIETY. PT IS FORGETFUL AND IMPULSIVE. NO C/O PAIN OR ANY DISCOMFORT THIS SHIFT. DENIES CP, SOB, OR N/V/D. VAZQUEZ CATH PATENT AND DRAINING TO GRAVITY, PT DENIES DYSURIA. BED AT LOWEST POSITION W/ ALARM ON, CALL LIGHT WITHIN REACH.
--- NOTE | 2021-09-24 04:33 | NUR ---
SHIFT SUMMARY: AOX2, FORGETFUL, SKITISH, SOFT SPOKEN. FOLLOWS DIRECTIONS WELL. DENIED ANY CONCERNS. VAZQUEZ REMAINED PATENT. VS WNL, AFEBRILE. NO ACUTE CHANGES OR CONCERNS TO NOTE. AWAITING PLACEMENT. CALL LIGHT IN REACH, BED ALARM ON.
--- NOTE | 2021-09-24 17:08 | NUR ---
SHIFT SUMMARY NO ACUTE CHANGES NOTED TO PT THIS SHIFT. PT IS AAO TO SELF AND SITUATION, PT IS ANXIOUS AND FORGETFUL AT TIMES, REQUIRES CONSTANT REDIRECTION. COOPERATIVE TO CARE. NO C/O PAIN OR ANY DISCOMFORT THIS SHIFT. VAZQUEZ CATH IN PLACE, PATENT AND DRAINING WELL. BED AT LOWEST POSITION W/ ALARM ON, CALL LIGHT WITHIN REACH.
--- NOTE | 2021-09-24 20:49 | NUR ---
PT WITH CONTINED ANXIETY AND PARANOIA, PT BELIEVES THAT THERE ARE "PERVERTS" OUT IN THE HALLWAYS THAT ARE GOING TO ENTER HIS ROOM AND HURT HIM. PT IS IMPULSIVE, CONTINUOUSLY GETS OUT OF BED WITHOUT ASSISTANCE DESPITE RE-DIRECTON AND EDUCATION REGARDING CALL LIGHT FUNCTION AND DIRECTIONS FOR USE. TELECOMMUNICATIONS SUPPORT HOSPITALIST, DR. GALLAGHER NOTIFIED AND NEW ORDERS WERE RECEIVED. BED ALRAM REMAINS ACTIVATED. PT CONTINUES TO GET OUT OF BED ABOUT EVERY 5 MINUTES. WILL CONTINUE TO MONITOR.
--- NOTE | 2021-09-25 04:26 | NUR ---
SHIFT SUMMARY ASSUMED CARE AT 1900. AT THE BEGINNING OF THE SHIFT, THE PT WAS VERY DISORIENTED AND PARANOID. PT WAS VOICING FEAR OF "PERVERT" THAT WAS IN THE HALLWAY IN FRONT OF HIS ROOM. HE WOULD CONTINUOUSLY GET OOB WITHOUT ASSISTANCE AND WALK INTO THE HALLWAY LOOKING FOR "THE PERVERT." HIS BEHAVIORS WERE REPORTED TO THE HOSPITALIST AND NEW ORDERS WERE RECEIVED AND CARRIED OUT WITH GOOD EFFECT. PT SIGNIFICANTLY LESSENED THE AMOUNT OF TIMES HE ATTEMPTED TO GET OOB. PT IS CURRENTLY IN BED, RESTING WITH HIS EYES CLOSED. LUE POWERGLIDE FLUSHES WITH EASE AND DRESSING REMAINS INTACT. CHRONIC FOLRY CATHETER REMAINS IN PLACE, PATENT, DRAINING URINE VIA GRAVITY. BED ALARM REMAINS ACTIAVTED AND BED IS IN LOWEST POSITION WITH THE CALL LIGHT PLACED WITHIN EASY REACH. WILL CONTINUE TO MONITOR.
--- NOTE | 2021-09-25 19:17 | NUR ---
SHIFT SUMMARY PATIENT IS ALERT AND ORIENTED X2. SELF AND FAMILY. PATIENT BECAME MORE CONFUSED AND PARANOID THIS AFTERNOON. PATIENT STATED THEY WANTED TO KEEP THE PERVERTS OUT OF THEIR ROOM. PATIENT REFUSES TO USE GAIT BELT OR WALKER. PATIENT WAS UP FOR MEALS THIS SHIFT. NO ACUTE CHANGES THIS SHIFT. VSS. PATIENT IS IN BED AT THIS TIME. CALL LIGHT WITHIN REACH. BED ALARM SET FOR SAFETY.
--- NOTE | 2021-09-25 20:10 | NUR ---
PT CONTINUES TO BE CONFUSED WITH PARANOIA, ANXIETY AND AGITATION. HOSPITALIST, DR. DEMARCO NOTIFIED AND NEW ORDERS RECEIVED.
--- NOTE | 2021-09-26 06:40 | NUR ---
SHIFT SUMMARY ASSUMED CARE AT 1900. PT WAS CONFUSED, VERY ANXIOUS AND PARANOID. HOSPITALIST WAS NOTIFED AND NEW ORDERS WERE RECEIVED AND CARRIED OUT WITH GOOD EFFECT. PT LUE POWERGLIDE DRESSING AND CAPS WERE CHANGED LAST NIGHT. CHRONIC VAZQUEZ CATHETER REMAINS IN PLACE, PATENT, DRAINING URINE VIA GRAVITY. PT DENIED PAIN AND DID NOT VOICE ANY COMPLAINTS DURING THE SHIFT EXCEPT FOR EXPRESSING CONCERN THAT "PERVERTS" WERE RIGHT OUTSIDE HIS ROOM DOOR IN THE HALLWAY AND WERE DOING TO HURT HIM. PT WAS REASSURED AND ATTEMPTS WERE MADE TO RE-ORIENT THE PT SEVERAL TIMES. PT CURRENTLY RESTING IN BED WITH HIS EYES CLOSED. BED IS IN LOWEST POSITION WITH THE CALL LIGHT WITHIN EASY REACH. BED ALARM REMAINS ACTIVATED. WILL CONTINUE TO MONITOR.
--- NOTE | 2021-09-26 16:25 | NUR ---
SHIFT SUMMARY PT IS AO TO SELF. PT DENIES PAIN, N/V, SOB. PT MEDICATED X1 WITH SEROQUEL. PT APPETITE IS GOOD. PT CONTINENT OF BOWEL AND VAZQUEZ DRAINING YELLOW URINE. PT UP IN ROOM WITH ONE ASSIST. PT PENDING PLACEMENT. PT IS IN ROOM, CALL LIGHT IN REACH, LOW POSITION.
--- NOTE | 2021-09-27 07:00 | NUR ---
SHIFT SUMMARY ASSUMED CARE AT 1900. PT WAS AAOX1-2, CONFUSED, IMPULSIVE, PARANOID BUT ABLE TO BE REDIRECTED AND REASSURED. NO COMPLAINTS VOICED. LUE POWERGLIDE SITE BENIGN AND DRESSING INTACT. CHRONIC VAZQUEZ CATHETER DRAINING DARK YELLOW URINE VIA GRAVITY. BED ALARM REMAINS ACTIAVTED, BED IN LOWEST POSITION WITH THE CALL LIGHT WITHIN EASY REACH.
--- NOTE | 2021-09-27 15:59 | NUR ---
SHIFT SUMMARY PT IS AOX2 AND FORGETFUL. PT EXPERIENCES VISUAL HALLUCINATIONS AND PARANOIA THIS CATINA AND MEDICATED X1 WITH PRN SEROQUEL. PT DENIES PAIN, N/V, SOB. PT APPETITE IS GOOD. PT IS ONE ASSIST IN ROOM AND RELATIVELY REDIRECTABLE. CHRONIC VAZQUEZ PATENT AND DRAINING YELLOW URINE. PT DID NOT HAVE VISITORS. PLAN IS FOR PLACEMENT. PT UP TO CHAIR T/O SHIFT. PT IS IN CHAIR, CALL LIGHT IN REACH, ALARM ON.
--- NOTE | 2021-09-28 07:05 | NUR ---
SHIFT SUMMARY ASSUMED CARE AT 1900. PT REMAINED CONFUSED, PARANOID, AND ANXIOUS FOR THE FIRST HALF OF THE SHIFT DESPITE RECEIVVING PRN MEDICATION FOR AGITATION PER EMAR. PT FINALLY FELL ASLEEP. LUE POWERGLIDE SITE BENIGN. CHRONIC VAZQUEZ CATHETER IN PLACE, DRAINING URINE VIA GRAVITY. BED ALARM ACTIVATED, BED IN LOW POSITION WITH THE CALL LIGHT WITHIN EASY REACH. WILL CONTINUE TO MONITOR.
--- NOTE | 2021-09-28 18:24 | NUR ---
SHIFT SUMMARY: NO ACUTE EVENTS. A&O X 1, CONFUSED, FORGETFUL, CAN BE PARANOID AND FEARFUL AT TIMES. IMPAIRED GAIT, REFUSING TO USE FWW. TOLERATING PO INTAKE, GOOD APPETITE. DENIED PAIN. PRN DOSE OF SEROQUEL GIVEN FOR EARLY ING BEHAVIOR. VAZQUEZ DRAINING CLOUDY YELLOW URINE, REFUSED CATHETER CARE AND SHOWER.
--- NOTE | 2021-09-29 06:22 | NUR ---
SHIFT SUMMARY ASSUMED CARE AT 1900. LAST NIGHT PT WAS VERY ANXIOUS, RESTLESS AND PARANOID. PT VERBALIZED FEAR FOR HIS SAFETY. PT WOULD FREQUENTLY GET OOB WITHOUT ASSISTANCE TO LOOK FOR "PERVERTS." PT REDIRECTED AND REASSURED SEVERAL TIMES. PT MEDICATED PRN PER EMAR. LUE POERGLIDE SITE BENIGN. CHRONIC VAZQUEZ CATHETER PATENT, DRAINING URINE VIA GRAVITY. PT DENIED PAIN. AFTER ABOUT [id number], PT FINALLY FEEL ASLEEP. NO OTHER EPISODES OF PARANOIA. BED IS IN LOW POSITION WITH THE CALL LIGHT WITHIN EASY REACH. BED ALARM REMAINS ACTIAVTED. WILL CONTINUE TO MONITOR.
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
--- NOTE | 2021-09-30 05:09 | NUR ---
PATIENT WAS ALERT AND ORIENTED X2, STABLE VITAL SIGNS, NO ACUTE CHANGES. PATIENT DENIES ANY PAIN. PATIENT WAS PLEASANT AND COOPERATIVE. PATIENT AWAITING PLACEMENT IN MEMORY CARE FACILITY. CALL IN WITHIN REACH, BED DOWN TO THE LOWEST POSITION. WILL CONTINUE TO MONITOR TILL HAND OFF.
--- NOTE | 2021-09-30 17:31 | NUR ---
SHIFT SUMMARY; PATIENT AO X 2 DURING DAY. HE IS COOPERATIVE WITH CARE. HOWEVER DOES NOT WANT TO GET OUT OF BED. HE DOES AGREE TO GET UP FOR BREAKDAST AND LUNCH MEALS HOWEVER REFUSES FOR DINNER MEAL. VITAL SIGNS ARE WNL AND NO CHANGE IN CONDITION IS NOTED. PATIENT WAITING FOR PLACEMENT AND GUARDIANSHIP. TOYA CEJA RN
--- NOTE | 2021-09-30 18:07 | NUR ---
JULISA KHAN CALLS AND SHE WILL EMAIL [employer] CHRISTOPHER AND LET HIM KNOW THAT AMARA CAN FILE FOR GUARDIANSHIP THROUGH HIS OFFICE AND THAT HER FAMILY IS OK WITH HAVING A PAID GUARDIAN. SHE HAS NO PREFERENCE FOR HIS PLACEMENT WOULD PREFER HE STAY IN [place] BUT IS WILLING TO ALLOW HIM TO GO TO [place] IF NECESSARY FOR PLACEMENT. TOYA CEJA RN
--- NOTE | 2021-10-01 06:33 | NUR ---
PATIENT WAS ALERT AND ORIENTED X2, STABLE VITAL SIGNS, NO ACUTE CHANGES, PATIENT DENIED ANY PAIN. PATIENT SLEPT THROGH THE NIGHT. CALL [facility] WITH REACH AND BED TO THE LOWEST POSITION, WILL MONITOR UNTIL HAND OFF.
--- NOTE | 2021-10-01 18:41 | NUR ---
SHIFT SUMMARY; PATIENT WAS SLIGHTLY CONFUSED DURING DAY. HE THOUGHT HE HEARD HIS FAMILY IN THE HALLWAY COMING TO TAKE HIM HOME. PATIENT WAS REORIENTED AND RETURNED TO HIS ROOM. CAME TO DOORWAY 2 MORE TIMES DURING DAY BUT WAS ABLE TO RETURN TO ROOM WITHOUT ANY CONFLICT.
--- NOTE | 2021-10-02 05:11 | NUR ---
PATIENT WAS ALERT AND ORIENTED X2, STABLE VITAL SIGNS, NO ACUTE CHANGES. PATIENT DENIED ANY PAIN AND SLEPT THROUGH THE NIGHT. VAZQUEZ WAS PATENT. PATIENT AWAITING PLACEMENT IN MEMORY CARE FACILITY. CALL LIGHT WITH IN REACH AND BED DOWN TO THE LOWEST POSTION. WILL CONTINUE TO MONITOR UNTIL HAND OFF.
--- NOTE | 2021-10-02 16:37 | NUR ---
SHIFT SUMMARY PATIENT DENIES PAIN, NAUSEA, AND SHORTNESS OF BREATH. PATIENT IS INDEPENDENT IN ROOM. VAZQUEZ IS PATENT AND DRAINING TO GRAVITY. DRESSING CHANGED ON POWERGLIDE. PATIENT IS EATING AND DRINKING WELL. PATIENT IS PLEASANT AND COOPERATIVE WITH CARE.
--- NOTE | 2021-10-03 04:49 | NUR ---
PATIENT WAS ALERT AND ORIENTED X2, STABLE VITAL SIGNS, NO ACUTE CHANGES. PATIENT DENIES ANY PAIN. PATIENT WOKE UP AND WON'T GET BACK IN BED DUE TO AUDITORY HALLUCINATION BUT AGREED AND SLEPT ON HIS BED AFTER BEING REASSURED NO HARM WILL COME TO HIM. CALL LIGHT WITH IN REACH AND BED DOWN TO THE LOWEST POSITION. WILL CONTINUE TO MONITOR UNTILL HAND OFF
--- NOTE | 2021-10-03 10:30 | NUR ---
Spiritual Care visit at Pt. request. Pt. was standing in his room, and was alert but demonstrated some confusion. Pt. had requested a cosmetology professor, but when I inquired, he could not remember why. Pt. was unsettled by his hospitalization and had spiritual distress based on fear of the world situation. Established rapport with pt. Requested pt. sit down and they complied. Provided a calming presence and an emotional de-escalation. Faciliated a scattered life review. Pt. verbalized a strong soheila, and we explored issues of soheila and beleif. Pt. displayed evidence of mild catharsis, and reduced stress, though he doesn't understand why he is in the hospital. Provided pastoral prayer, and pt. verbalized gratitude for the visit. for the visit.
--- NOTE | 2021-10-03 17:21 | NUR ---
SHIFT SUMMARY PATIENT DENIES PAIN, NAUSEA, AND SHORTNESS OF BREATH. PATIENT QUITE ANXIOUS THIS MORNING, PACING THE HALLWAY. PATIENT REQUESTED VISIT FROM NURSE SCHOOL. AFTER VISIT, PATIENT SEEMED TO RELAX. PATIENT IS INDEPENDENT IN HIS ROOM. GUARDIANSHIP PAPERWORK WAS DROPPED OFF TO PATIENT. PATIENT SEEMED VERY EXCITED ABOUT THIS. PATIENT IS EATING AND DRINKING WELL. PATIENT IS PLEASANT AND COOPERATIVE WITH CARE.
--- NOTE | 2021-10-04 05:26 | NUR ---
PATIENT WAS ALERT AND ORIENTED X2, STABLE VITAL SIGNS, NO ACUTE CHANGES. VAZQUEZ WAS PATENT. PATIENT SLEPT FOR MOST OF THE NIGHT. CALL LIGHT WITHIN REACH AND BED DOWN TO THE LOWEST POSITION. WILL CONTINUE TO MONITOR UNTIL HAND OFF.
--- NOTE | 2021-10-04 16:47 | NUR ---
SHIFT SUMMARY PT AxOx2 WITH INTERM CONFUSION AND ANXIETY. PT IS QUIET AND APPEARS FEARFUL DURING INTERACTIONS. HX OF PARANOIA. PT HAS CHRONIC VAZQUEZ, DRAINING PATENT CLEAR URINE AT THIS TIME. PT HAD LARGE BM TODAY. PT DENIES ANY PAIN THIS SHIFT. DAUGHTER- REUBEN IN THE PROCESS OF OBTAINING GUARDIANSHIP. CURRENT PLAN IS PENDING MEMORY CARE PLACEMENT. PT CURRENTLY RESTING IN BED WITH CALL LIGHT IN REACH. DENIES ANY NEEDS AT THIS TIME.
--- NOTE | 2021-10-05 05:03 | NUR ---
SHIFT SUMMARY PT AOX1 AND VERY PARANOID, CHECKING OUT THEIR DOOR OFTEN THROUGHOUT THIS SHIFT. PT SCARED OF OTHER PTs YELLING OUT AND THINKING THEY ARE COMING IN THEIR ROOM. PT MEDICATED PER EMAR AND ONCE ASSURED OF SAFETY PT RESTED WELL. PT CURRENLTY ASLEEP WITH RISE AND FALL OF CHEST, WILL CONTINUE TO MONITOR UNTIL REPORT IS GIVEN.
--- NOTE | 2021-10-05 17:50 | NUR ---
SHIFT SUMMARY PT AXO TO SELF, PLACE AND FOLLOWING DIRECTIONS, PLEASANT AND COOPERATIVE WITH CARE. VAZQUEZ PATENT AND DRAINING CLEAR YELLOW URINE. POWERGLIDE FLUSHED, CAPS CHANGED. NO ACUTE CHANGES THIS SHIFT. BED IN LOW POSITION, CALL LIGHT WITHIN REACH.
--- NOTE | 2021-10-06 04:55 | NUR ---
SHIFT SUMMARY PT AOX2 AND PARANOID THIS SHIFT. PT HEARS OTHER PTs YELLING AND BECOMES FEARFUL. THIS NURSE OFFERS ASSURANCE OF SAFETY AND ALLOWS PT TO CLOSE ROOM DOOR FOR COMFORT. PT STAYED IN ROOM THIS SHIFT LOOKING OUT WINDOW OFTEN ROUNDS WERE MADE. PT RESTED WELL THIS SHIFT ONCE ASLEEP, WITH RISE AND FALL OF CHEST. PT STILL ASLEEP AND THIS NURSE WILL CONTINUE TO MONITOR UNTIL REPORT IS GIVEN.
--- NOTE | 2021-10-06 17:41 | NUR ---
SHIFT SUMMARY PT AXO X4 THOUGH CONCERNED ABOUT THE PATIENT ACROSS THE WOODALL. VSS. PT DENIES PAIN, SOB AND N/V. PT HAD SHOWER THIS SHIFT. NO OTHER CHANGES. BED IN LOW POSITION, CALL LIGHT WITHIN REACH. VAZQUEZ PATENT AND DRAINING CLEAR YELLOW URINE. PT PLEASANT, POLITE AND COOPERATIVE WITH CARE.
--- NOTE | 2021-10-07 05:04 | NUR ---
SHIFT SUMMARY PT AOX3 AT TIMES AND WAS PARANOID AT THE START OF THIS SHIFT. PT ABLE TO RELAX AND TAKE MEDS PER EMAR. PT RESTED WELL WITH RISE AND FALL OF CHEST NO S/S OF DISTRESS UPON ROUNDS. PT STILL ASLEEP AT THE MOMENT AND THIS NURSE WILL CONTINUE TO MONITOR UNTIL REPORT IS GIVEN.
--- NOTE | 2021-10-07 16:27 | NUR ---
Upon receiving a request for spiritual care from patient's RN, I visit patient. Patient shares about his service in the [employer] and the [employer], his career in the [employer] business and his long held Roman Catholic beliefs. Patient talks about the of his parents and how he has lived with them his whole life (except for when he was in the service). Patient seems anxious at the beginning of the visit but relaxes significantly as we talk. Patient is greatly encouraged by conversation centered around God and his Mormon Shonda. I reinforce helpful attitudes and practices and provide therapeutic listening, pastoral crisis intervention counselor and prayer. Patient responds well and shows signs of an elevated mood. I will continue to remain available to patient and family.
--- NOTE | 2021-10-07 17:28 | NUR ---
SHIFT SUMMARY PATIENT PLEASANT AND COOPERATIVE WITH CARE. VAZQUEZ CATHETER PATENT AND DRAINING URINE. PATIENT ABLE TO MOVE INDEPENTLY ABOUT ROOM. SPENDS MOST OF DAY SITTING IN CHAIR. PATIENT REQUESTED VISIT FROM SPIRITUAL CARE. BED IS IN LOW POSITION WITH CALL LIGHT IN REACH. WILL CONTINUE TO MONITOR.
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
--- NOTE | 2021-10-08 04:35 | NUR ---
SHIFT SUMMARY PT AOX3 AT TIMES BUT WAS HAVING HALLUCINATIONS AND DELUSIONAL THOUGHTS THROUGHOUT THIS SHIFT. PT CONTINOUSLY WANDERED IN THE HALLS FOLLOWING STAFF TO OTHERS ROOM, PARANOID ABOUT "THE INVASION." THIS NURSE AND STAFF COULD NOT REDIRECT OFTEN BUT PT WAS MEDICATIED PER EMAR. THE PRN WAS NOT EFFECTIVE AND THE PT WENT TO BED AT 0345. PT ASLEEP WITH RISE AND FALL OF CHEST WITHOUT S/S OF DISTRESS. THIS NURSE WILL CONTINUE TO MONITOR UNTIL REPORT IS GIVEN.
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
--- NOTE | 2021-10-08 17:26 | NUR ---
PT AOX3 WITH CONFUSION. PT IS STAYING IN HIS ROOM A LOT TODAY. PT WILL LOOK OUT AT TIMES AND STATES HE DOES NOT NEED ANYTHING. CALL LIGHT WITHIN REACH WILL CONITNUE TO MONITOR.
--- NOTE | 2021-10-09 06:29 | NUR ---
SHIFT SUMMARY PT AOX3 WITH SOME CONFUSION AT TIMES BUT WAS CALM THIS SHIFT. PT WAS MEDICATED PER EMAR AND RESTED MORE THIS SHIFT. PT STILL ASLEEP WITH RISE AND FALL OF CHEST, NO S/S OF DISTRESS. THIS NURSE WILL CONTINUE TO MONITOR UNTIL REPORT IS GIVEN.
--- NOTE | 2021-10-09 13:11 | NUR ---
Spiritual care visit conducted. Patient is sitting on a chair and alert. Patient immediately talks about the rats in his house and that the care management team is trying to get him placed at the [facility]. He tells me that the staff is spiritually against him and that he is not sure he is safe. I explain about how safe he is and about the protective measures that are in place to ensure no harm will come to him. I read chapter 8 of Luis Felipe in the Bible to remind the patient of how secure he is in the love of God. Patient speaks at length about how he is encouraged by this scripture reading. I also provide prayer which soothes patient as well. I will continue to remain available to patient and family.
--- NOTE | 2021-10-09 16:58 | NUR ---
NO ACUTE CHANGES. PT INDEPENDENT IN ROOM AND PT WILL MAKE HIS NEEDS KNOWN. TAYLOR IS PATENT AND WORKING WELL. CALL LIGHT WITHIN REACH AND PT WILL COME OUT TO ASK FOR THINGS. WILL CONTINUE TO MONITOR.
--- NOTE | 2021-10-10 07:15 | NUR ---
Patient very paranoid before bed last night. He was looking in rooms stating that "they were putting animals in the rooms". When asked why, he stated "they think they are better than us". Later, he asked me to look under his bed because something is hitting his madison bag. No complaints of pain or discomfort overnight
--- NOTE | 2021-10-10 18:08 | NUR ---
SHIFT SUMMARY PATIENT IS ALERT AND ORIENTED X2-3, PLEASANT CONFUSED AND HALLUCINATES AT TIMES. PATIENT STATED "THERE WERE SNAKES IN THEIR ROOM UNDER THE BED." PATIENT HAS A CHRONIC VAZQUEZ DRAINING YELLOW URINE TO GRAVITY. NO ACUTE CHANGES VSS. THIS NURSE WILL CONTINUE TO CARE FOR THE PATIENT UNTIL SHIFT REPORT IS GIVEN TO ONCOMING NURSE.
--- NOTE | 2021-10-11 05:52 | NUR ---
KEVIN STAYED TO HIMSELF LAST NIGHT. PLEASANT AND HIS USUAL QUIET. NO SPECIFIC CONCERNS OR PARANOIAS MENTIONED. HE FELL ASLEEP VERY EARLY, AND SLEPT UNTIL THE LAB CAME IN THIS MORNING. NO INDICATIONS OF DISCOMFORT OR CHANGES NOTED OVERNIGHT
[2021-10-11 05:53] LABS: Hematocrit 36.2 % (37.0-53.0); Hemoglobin 11.6 g/dL (13.5-17.5); Mean Corpuscular HGB 30.8 pg (26.0-34.0); Mean Corpuscular Volume 96 fL (80-100); Mean Platelet Volume 11.2 fL (9.1-12.4); Platelet Count 146 K/mm3 (150-400); RDW Coefficient Variation 13.2 % (11.7-14.2); RDW Standard Deviation 46.3 fL (35.1-46.3); Red Blood Cell Count 3.77 M/mm3 (4.30-5.90); White Blood Cell Count 4.63 K/mm3 (4.00-11.30)
[2021-10-11 06:42] LABS: Anion Gap 6 mmol/L (6-16); Blood Urea Nitrogen 24 mg/dL (8-24); CO2, Blood 29 mmol/L (21-32); Calcium, Blood 9.1 mg/dL (8.5-10.1); Chloride, Blood 107 mmol/L (98-108); Creatinine, Blood 0.83 mg/dL (0.60-1.20); Glomerular Filtration Rate >60 (60-); Glucose, Blood 79 mg/dL (70-99); Potassium, Blood 3.9 mmol/L (3.5-5.5); Sodium, Blood 142 mmol/L (136-145)
--- NOTE | 2021-10-11 17:40 | NUR ---
SHIFT SUMMARY PATIENT IS ALERT AND ORIENTED X3, PLEASANT AND COOPERATIVE WITH CARE. THE PATIENT CHANGED THEIR GOWN AND ROBE THIS SHIFT. NO ACUTE CHANGES. CALL LIGHT WITHIN REACH. PATIENT WILL MAKE NEEDS KNOWN. NO HALLUCINATIONS OR PARANOIA IDEATIONS NOTED THIS SHIFT. WILL CONTINUE TO CARE FOR THE PATIENT UNTIL SHIFT REPORT IS GIVEN TO ONCOMING NURSE.
--- NOTE | 2021-10-12 04:39 | NUR ---
SHIFT SUMMARY PATIENT HAD NO ACUTE CHANGES OBSERVED. AXOX 2-3 WITH HX OF DEMENTIA. INDEPENDENT IN ROOM. NO IV ACCESS. VAZQUEZ PATENT AND DRAINING TO GRAVITY. NO HALLUCINATIONS OBSERVED. VSS/AFEBRILE. DENIES PAIN, SOB, AND N/V. TOOK MEDICATION WHOLE WITH WATER. REPORTED WANTED TO GO TO BED EARLY. COOPERATIVE WITH CARE. CALL LIGHT IN REACH. BED IN LOWEST POSITION. WILL CONTINUE TO MONITOR UNTIL DAY SHIFT NURSE ASSUMES CARE.
--- NOTE | 2021-10-12 17:11 | NUR ---
SHIFT SUMMARY NO ACUTE CHANGES. PT WAS LOOKING FOR HIS GLASSES THAT WERE TAKEN ON A MEAL TRAY EARLIER IN HIS STAY. NIECE WAS MEANT TO BRING NEW PAIR FOR HIM SOMETIMES SOON. PT IS COMFORTABLE AND COMPLAINT WITH CARE. WILL CONTINUE TO MONITOR.
--- NOTE | 2021-10-13 04:15 | NUR ---
SHIFT SUMMARY PATIENT HAD NO ACUTE CHANGES OBSERVED. AXOX 3 WITH HX OF DEMENTIA. SLOW TO RESPOND. PATIENT ANXIOUS/PARANOID UP MORE WANDERING HALLS AND LOOKING OUT THROUGH HIS DOOR WINDOW IN ROOM. REPORTED HEARING KNOCKING ON HIS DOOR. VAZQUEZ PATENT AND DRAINING TO GRAVITY. VSS. DENIES PAIN, SOB, AND N/V. CALL LIGHT IN REACH. BED IN LOWEST POSITION. WILL CONTINUE TO MONITOR UNTIL DAY SHIFT NURSE ASSUMES CARE.
--- NOTE | 2021-10-13 16:36 | NUR ---
SHIFT SUMMARY KEVIN REMAINS CONTENT AND PLEASANT TO WORK WITH. HE IS SLOW TO RESPOND, AND REQUIRES REORIENTATION TO LOCATION/WHO HOSPITAL STAFF ARE. SHOWERED TODAY. PLAN: AWAITING PLACEMENT TO MEMORY CARE. NO IV ACCESS, ROOM AIR. VSS, NO ACUTE CHANGES. WILL CONTINUE TO MONITOR.
--- NOTE | 2021-10-14 03:39 | NUR ---
SHIFT SUMMARY PATIENT HAD NO ACUTE CHANGES OBSERVED. AXOX 3 WITH HX OF DEMENTIA. SLOW TO RESPOND. LESS ANXIOUS/PARANOID THIS NOC SHIFT. TAKES MEDICATION WHOLE WITH WATER. VAZQUEZ PATENT AND DRAINING. DENIES PAIN, SOB, AND N/V. NO IV ACCESS. REPORTED HE WANTED TO GET TO SLEEP EARLY IN THE SHIFT. CALL LIGHT IN REACH. BED IN LOWEST POSITION. WILL CONTINUE TO MONITOR UNTIL DAY SHIFT NURSE ASSUMES CARE.
--- NOTE | 2021-10-14 18:31 | NUR ---
DAY SHIFT SUMMARY A/O X2-3, SLOW TO RESPOND. PARANOID HALLUCINATIONS NOTED. WAITING PLACEMENT IN MEMORY CARE. CHRONIC VAZQUEZ IN PLACE/INTACT/PATENT/DRAINING BY GRAVITY. MEDS WHOLE, PT ON RA. CALLS APPROPRIATELY, CALL LIGHT WITHIN REACH.
--- NOTE | 2021-10-15 06:02 | NUR ---
SHIFT SUMMARY: PT IS A/OX2. HE HAD SOME PARANOID DISTURBANCES DURING THE NOC SHIFT, BUT IS EASILY REDIRECTABLE. HE IS INDEPENDENT W/O ANY ASSISTIVE DEVICE. PT's VAZQUEZ IS PATENT AND NO C/O FROM THE PT.
--- NOTE | 2021-10-16 06:43 | NUR ---
SUMMARY: PT REMAINS A/OX2 BUT SLIGHLTY FORGETFULL TO EVENT AND SURROUNDINGS W/REMINDERS PROVIDED PRN. HE WAS PLEASANT AND COOPERATIVE W/CARE AND SPECIFIED NEEDS WHEN STAFF IN ROOM. PT WAS HEARD OCCASIONALLY SPEAKING ALOUD TO SELF BUT DISPLAYED NO S/S PARANOID DISTURBANCES TONIGHT. HE WAS AWAKE UNTIL APPROX 0300 BUT EVENTUALLY T/F'D SELF TO BED TO SLEEP. SNACKS PROVIDED PRN AND PT HAS CHRONIC INDWELLING CATHETER, PATENT AND DRAINING TO GRAVITY. NO ACUTE CHANGES, VSS/AFEBRILE. WCTM AND REPORT TO DAY RN.
--- NOTE | 2021-10-16 18:43 | NUR ---
SHIFT SUMMARY- PT HAS SLEPT ALOT T/O THE DAY, WAKING FOR MEALS. PER REPORT PT HAS NOT REALY SLEPT FOR THE LAST TWO DAYS. PT HAS A CHRONIC VAZQUEZ CATH IN PLACE DRAINING CLEAR YELLOW URINE TO GRAVITY. PT WANTED HIS DOOR CLOSED AGAIN TODAY, HAD A FULL SHOWER TODAY THAT HE GAVE HIMSELF, WITH STAFF SETUP AND PROMPTING TO START THE PROCESS. PT PLEASENT AND INDEPENDENT IN THE ROOM AND HALLS, HOWEVER HAS STAYED IN HIS ROOM TO SLEEP THIS SHIFT RATHER THAN WALKING THE HALLS. NO ACUTE CHANGE T/O THE SHIFT.
--- NOTE | 2021-10-17 03:27 | NUR ---
BAG HANGER SUMMARY PATIENT HAD A FAIR SHIFT, HIS V/S WERE CHECKED AND RECORDED. HIS ASSESSMENT DONE AND CHARTED. HAD AN UNEVENTFUL SHIFT. WILL CONTINUE TO MONITOR HIM.
--- NOTE | 2021-10-17 18:17 | NUR ---
SHIFT SUMMARY- PT HAS HAD NO ACUTE CHANGE T/O THE SHIFT, CHRONIC VAZQUEZ IN PLACE PATENT AND DRAINING. PT NAPPED OFF AND ON THROUGHOUT THE DAY. NO C/O PAIN OR DISCOMFORT.
--- NOTE | 2021-10-18 03:31 | NUR ---
PAPER BAG INSPECTOR SUMMARY PATIENT HAD A FAIR SHIFT. NO COMPLAINTS OVERNIGHT. VITALS WERE STABLE. WILL CONTINUE TO MONITOR HIM.
[2021-10-19 05:08] LABS: Hematocrit 39.9 % (37.0-53.0); Hemoglobin 12.8 g/dL (13.5-17.5); Mean Corpuscular HGB 30.8 pg (26.0-34.0); Mean Corpuscular HGB Conc 32.1 g/dL (31.5-36.5); Mean Corpuscular Volume 96 fL (80-100); Mean Platelet Volume 10.7 fL (9.1-12.4); Platelet Count 239 K/mm3 (150-400); RDW Coefficient Variation 13.2 % (11.7-14.2); RDW Standard Deviation 46.3 fL (35.1-46.3); Red Blood Cell Count 4.16 M/mm3 (4.30-5.90)
[2021-10-19 05:41] LABS: Anion Gap 8 mmol/L (6-16); Blood Urea Nitrogen 22 mg/dL (8-24); Bun/Creatinine Ratio 32.5 (12.0-20.0); CO2, Blood 26 mmol/L (21-32); Calcium, Blood 9.1 mg/dL (8.5-10.1); Chloride, Blood 104 mmol/L (98-108); Creatinine, Blood 0.68 mg/dL (0.60-1.20); Glomerular Filtration Rate >60 (60-); Glucose, Blood 87 mg/dL (70-99); Sodium, Blood 138 mmol/L (136-145)
--- NOTE | 2021-10-19 16:58 | NUR ---
PATIENT HAS HAD A GOOD SHIFT. HE IS ORIENTATED TO DATE AND PLACE BUT IS SLOW TO REPOND TO QUESTIONS. MEDICATIONS WERE GIVEN INCLUDING LOVENOX. PATIENT HAD AN ORDER FOR VADIM HICKS, WHICH NURSING UPDATED TO DE. LS ARE DIMINISHED AND HE REPORTS A DRY DAY TIME COUGH. THERE IS +1 EDEMA IN RIGHT FOOT AND LOWER LEG, WITH POOR CAP REFILL > 5 SECONDS, TOES ARE PURPLE AND SKIN IS COLD ON THAT EXTREMITY. LATE THIS AFTERNOON HE CAME INTO THE HALLWAY WITH A PACKED BAG, VAZQUEZ CATH BAG IN HAND, STATING THAT HE HAD A RIDE HERE TO PICK HIM UP BECASUE HE WAS TRANSFERRING TO ANOTHER FACILTY. PATIENT WAS EASILY REDIRECTED VERBALLY. HE IS CURRENTLY IN HIS ROOM WAITING FOR SUPPER. WE WILL CONTINUE TO MONITOR AND REDIRECT NEEDED.
--- NOTE | 2021-10-20 02:46 | NUR ---
PERFORATOR OPERATOR OIL WELL SUMMARY PT HAD A FAIR SHIFT. HIS V/S WERE STABLE. HE DID NOT LODGE ANY COMPLAINTS. WILL CONTINUE TO MONITOR HIM.
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
[2021-10-20 18:11] LABS: Source, Urine Foley catheter
[2021-10-20 18:14] LABS: Appearance, Urine Hazy (Clear); Bilirubin, Urine Neg (Neg); Blood, Urine 4+ (Neg); Color, Urine Yellow (P-Yellow); Glucose Qualitative, Urine Neg (Neg); Ketones, Urine Neg (Neg); Leukocyte Esterase, Urine 3+ (Neg); Nitrite, Urine Neg (Neg); Protein, Urine 2+ (Neg); Urobilinogen, Urine NORM (Normal)
[2021-10-20 18:25] LABS: Bacteria Many /hpf; Red Blood Cells, Urine 25-50 /hpf (0-2); Squamous Epithelial Cells Few /hpf (Few)
[2021-10-20 18:26] LABS: Amorphous Light (0-Heavy); Mucus Light (0-Heavy)
--- NOTE | 2021-10-20 20:45 | NUR ---
NOTIFIED OF NEW UA RESULTS POST CHRONIC INDWELLING VAZQUEZ REPLACEMENT ON DAY SHIFT. NEW ORDER RECIEVED FOR MACROBID PO, WILL COMMENCE WHEN AVAILABLE.
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
--- NOTE | 2021-10-21 17:25 | NUR ---
SHIFT SUMMARY PT HAS BEEN COOPERATIVE & PLEASANT T/O SHIFT. UP & AMBULATES IN HALLWAY. EATING, DRINKING, & MAKING GOOD URINE.
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
--- NOTE | 2021-10-22 17:36 | NUR ---
SHIFT SUMMARY: NO ACUTE EVENTS. DENIED PAIN. GETTING UP INDEPENDENTLY, USES FWW. NO EPISODES OF PARANOIA THIS SHIFT. SPENT THE DAY READING IN HIS ROOM. INDEPENDENT IN ROOM.
--- NOTE | 2021-10-23 06:19 | NUR ---
SHIFT SUMMARY: PATIENT HAD A REALLY GOOD NIGHT. MUCH LESS PARANOID THAN THE PREVIOUS NIGHT. PATIENT ALSO SLEPT ALL NIGHT LONG! VSS, NO REPORTS OF PAIN OR HALLUCINATIONS.
--- NOTE | 2021-10-23 19:25 | NUR ---
SHIFT SUMMARY: NO ACUTE EVENTS. DENIED PAIN. NO BEHAVIORS REQUIRING PRN MEDICATIONS. CHRONIC VAZQUEZ DRAINING ADEQUATE URINE. DECENT APPETITE. AMBULATING INDEPENDENTLY. AWAITING D/C TO THE [facility]; SELENA RUSH WOULD LIKE TO CALL OR TEXT NOTIFYING HER OF D/C TIME [phone].
--- NOTE | 2021-10-24 06:21 | NUR ---
SHIFT SUMMARY PT IS A 71 Y/O MALE, ORIGINALLY ADMITTED FOR SEPSIS R/T UTI AND CURRENTLY AWAITING PLACEMENT. HE IS A&O X 2-3, PARANOID AT TIMES. INDEPENDENT IN THE ROOM. NO C/O ACUTE PAIN, NAUSEA OR SOB. VITAL SIGNS STABLE. VAZQUEZ IN PLACE, PATENT AND DRAINING. NO ACUTE CHANGES IN PT CONDITION NOTED DURING THE NIGHT. WILL CONTINUE TO MONITOR AND TREAT PER EMAR UNTIL HAND OFF TO DAY SHIFT RN.
[2021-10-24] MEDS ORDERED: BISA10S PR (10:45)
[2021-10-24] MEDS ORDERED: Acetaminophen325 M1 PO (10:45)
[2021-10-24] MEDS ORDERED: FAMO20 PO (10:46)
[2021-10-24] MEDS ORDERED: Seroquel Xr50 MG PO ×2 (10:47)
--- NOTE | 2021-10-24 13:05 | NUR ---
DISCHARGE PATIENT TRANSPORTED VIA WHEELCHAIR TO AMBULANCE. PATIENT DISCHARGED TO THE [facility]. DISHCARGE PACKET SENT WITH PATIENT. COPY OF MED REC SENT WITH PATIENT. THERE WAS NO IV. BELONGINGS SENT WITH PATIENT.
== END 2021-10-24 13:04 | DRG 698 ==
LOC: ER 07:29 → ERHOLD 10:28 → MEDS 10:28 → ICUE 10:28 → MEDS 13:06 → ICUE 14:47 → MEDS 09-03 18:44
PROVIDERS: Emergency Medicine; Internal Medicine; ADMIT Family Medicine
PROC: 3E043XZ Introduction of Vasopressor into Central Vein, Percutaneous Approach (ICD-10-PCS; principal; 2021-09-01)
DX: T83.511A Infection and inflammatory reaction due to indwelling urethral catheter, initial encounter (principal); A41.4 Sepsis due to anaerobes; R65.21 Severe sepsis with septic shock; J18.9 Pneumonia, unspecified organism; G92.8 Other toxic encephalopathy; J15.6 Pneumonia due to other Gram-negative bacteria; N17.9 Acute kidney failure, unspecified; F02.81 Dementia in other diseases classified elsewhere, unspecified severity, with behavioral disturbance; E87.2 Acidosis; N39.0 Urinary tract infection, site not specified; Z20.822 Contact with and (suspected) exposure to COVID-19; Z66 Do not resuscitate; R31.0 Gross hematuria; D69.6 Thrombocytopenia, unspecified; H10.9 Unspecified conjunctivitis; G30.9 Alzheimer's disease, unspecified; E83.39 Other disorders of phosphorus metabolism; Y84.6 Urinary catheterization as the cause of abnormal reaction of the patient, or of later complication, without mention of misadventure at the time of the procedure
CPT/HCPCS: 0241U; 36415; 51702; 70450; 70551; 71045; 80048; 80053; 80202; 81001; 82607; 82746; 82947; 83605; 83735; 84100; 84145; 84436; 84439; 84443; 84481; 85025; 85027; 86140; 87040; 87077; 87086; 87186; 93005; 93010; 94760; 96374; 97110; 97112; 97116; 97162; 97166; 97530; 97535; 99285-25; A9270; C1751; J0692; J0696; J1650; J1940; J2060; J3370; J3475; J3480; J7030; J7060

== ENCOUNTER 2021-10-26 16:24 | Inpatient (IN) | payer OTHER, MEDICARE ==
[~2021-10-26] VITALS: Ht 188 cm; Wt 55.0 kg
[~2021-10-26 16:24] MED LIST changes: +Acetaminophen325 M1 PO; +BISA10S PR; +FAMO20 PO; +KETO.5OPSO RIGHTEYE; +LATA.005SO BOTHEYES; +Seroquel Xr50 MG PO; +TIMDOROPSO BOTHEYES
[2021-10-26 17:32] LABS: BASOPHILS ABSOLUTE AUTO 0.01 K/mm3 (0.00-0.23); BASOPHILS PERCENT AUTO 0 % (0-2); EOSINOPHILS ABSOLUTE AUTO 0.01 K/mm3 (0.00-0.68); EOSINOPHILS PERCENT AUTO 0 % (0-6); Hematocrit 46.1 % (37.0-53.0); Hemoglobin 15.6 g/dL (13.5-17.5); IMMATURE GRAN ABSOLUTE AUTO 0.07 K/mm3 (0.00-0.10); IMMATURE GRAN PERCENT AUTO 1 % (0-1); LYMPHOCYTES ABSOLUTE AUTO 0.57 K/mm3 (0.84-5.20); LYMPHOCYTES PERCENT AUTO 5 % (21-46); MONOCYTES ABSOLUTE AUTO 0.98 K/mm3 (0.16-1.47); MONOCYTES PERCENT AUTO 8 % (4-13); Mean Corpuscular HGB 31.6 pg (26.0-34.0); Mean Corpuscular HGB Conc 33.8 g/dL (31.5-36.5); Mean Corpuscular Volume 94 fL (80-100); Mean Platelet Volume 10.5 fL (9.1-12.4); NEUTROPHILS ABSOLUTE AUTO 10.88 K/mm3 (1.96-9.15); NEUTROPHILS PERCENT AUTO 87 % (41-73); Platelet Count 204 K/mm3 (150-400); RDW Coefficient Variation 13.1 % (11.7-14.2); RDW Standard Deviation 44.6 fL (35.1-46.3); Red Blood Cell Count 4.93 M/mm3 (4.30-5.90); White Blood Cell Count 12.52 K/mm3 (4.00-11.30)
[2021-10-26 17:50] LABS: Alanine Aminotransfer (ALT/SGP 55 U/L (12-78); Albumin, Blood 3.9 g/dL (3.4-5.0); Alk Phos 98 U/L (50-136); Anion Gap 8 mmol/L (6-16); Aspartate Aminotrans (AST/SGOT 34 U/L (12-37); Bilirubin, Total 1.1 mg/dL (0.1-1.0); Blood Urea Nitrogen 15 mg/dL (8-24); Bun/Creatinine Ratio 22.5 (12.0-20.0); CO2, Blood 27 mmol/L (21-32); Calcium, Blood 9.3 mg/dL (8.5-10.1); Chloride, Blood 104 mmol/L (98-108); Creatinine, Blood 0.67 mg/dL (0.60-1.20); Glomerular Filtration Rate >60 (60-); Glucose, Blood 123 mg/dL (70-99); Potassium, Blood 3.7 mmol/L (3.5-5.5); Sodium, Blood 139 mmol/L (136-145); Total Protein, Blood 7.9 g/dL (6.4-8.2)
[2021-10-26] MEDS ORDERED: LATA.005SO BOTHEYES (19:01)
[2021-10-26 19:22] LABS: International Normalized Ratio 1.07; Prothrombin Time Results 11.2 Sec (9.7-11.5)
[2021-10-27 01:28] LABS: Source, Urine Foley catheter
[2021-10-27 01:29] LABS: Bilirubin, Urine Neg (Neg); Blood, Urine 4+ (Neg); Glucose Qualitative, Urine Neg (Neg); Ketones, Urine Neg (Neg); Leukocyte Esterase, Urine 3+ (Neg); Nitrite, Urine Neg (Neg); Protein, Urine 2+ (Neg); Urobilinogen, Urine 2+ (Normal)
[2021-10-27 01:30] LABS: Appearance, Urine Hazy (Clear); Color, Urine Yellow (P-Yellow)
[2021-10-27 01:52] LABS: Squamous Epithelial Cells Not Seen /hpf (Few); White Blood Cells, Urine TNTC /hpf (0-5)
[2021-10-27 01:53] LABS: Amorphous Light (0-Heavy); Bacteria Mod /hpf; Mucus Light (0-Heavy)
--- NOTE | 2021-10-27 04:36 | NUR ---
SHIFT SUMMARY: PATIENT IS A&OX3, SLOW TO ANSWER QUESTIONS. PATIENT IS IMPULSIVE AT TIMES AND DENIES PAIN. LOW GRADE TEMP. 100.8 WAS TREATED WITH TYLENOL WITH POOR EFFECT, RECHECK WAS 100.4. VAZQUEZ CATHETER WAS REPLACED PER PROTOCOL AND URINE CULTURE WAS SENT. PATIENT TOLERATED PROCEEDURE WELL. STERI STRIPS TO RIGHT ADVENTIST ARE CD&I.
--- NOTE | 2021-10-27 04:50 | NUR ---
LATE ENTRY FOR 10/26/21 @ 8262 PATIENT WAS RECIEVED FROM ER VIA STRETCHER. PATIENT WAS ORIENTED TO ROOM AND CALL GUZMAN. INSTRUCTED TO US CALL GU[facility]MAN FOR ASSIST OOB. BED ALARM IS ON FOR SAFETY.
[2021-10-27 04:58] LABS: BASOPHILS ABSOLUTE AUTO 0.02 K/mm3 (0.00-0.23); BASOPHILS PERCENT AUTO 0 % (0-2); EOSINOPHILS PERCENT AUTO 0 % (0-6); Hematocrit 43.1 % (37.0-53.0); Hemoglobin 14.2 g/dL (13.5-17.5); IMMATURE GRAN ABSOLUTE AUTO 0.04 K/mm3 (0.00-0.10); IMMATURE GRAN PERCENT AUTO 0 % (0-1); LYMPHOCYTES ABSOLUTE AUTO 0.79 K/mm3 (0.84-5.20); LYMPHOCYTES PERCENT AUTO 7 % (21-46); MONOCYTES ABSOLUTE AUTO 0.97 K/mm3 (0.16-1.47); MONOCYTES PERCENT AUTO 9 % (4-13); Mean Corpuscular HGB 31.3 pg (26.0-34.0); Mean Corpuscular HGB Conc 32.9 g/dL (31.5-36.5); Mean Corpuscular Volume 95 fL (80-100); Mean Platelet Volume 10.5 fL (9.1-12.4); NEUTROPHILS ABSOLUTE AUTO 9.12 K/mm3 (1.96-9.15); NEUTROPHILS PERCENT AUTO 83 % (41-73); Platelet Count 205 K/mm3 (150-400); RDW Coefficient Variation 13.3 % (11.7-14.2); RDW Standard Deviation 47.2 fL (35.1-46.3); Red Blood Cell Count 4.53 M/mm3 (4.30-5.90); White Blood Cell Count 10.94 K/mm3 (4.00-11.30)
[2021-10-27 05:27] LABS: Alanine Aminotransfer (ALT/SGP 47 U/L (12-78); Albumin, Blood 3.5 g/dL (3.4-5.0); Albumin/Globulin Ratio 0.9 (0.8-1.8); Alk Phos 87 U/L (50-136); Anion Gap 7 mmol/L (6-16); Aspartate Aminotrans (AST/SGOT 23 U/L (12-37); Bilirubin, Total 1.2 mg/dL (0.1-1.0); Blood Urea Nitrogen 20 mg/dL (8-24); Bun/Creatinine Ratio 23.3 (12.0-20.0); CO2, Blood 29 mmol/L (21-32); Calcium, Blood 9.4 mg/dL (8.5-10.1); Chloride, Blood 103 mmol/L (98-108); Creatinine, Blood 0.86 mg/dL (0.60-1.20); Glomerular Filtration Rate >60 (60-); Glucose, Blood 119 mg/dL (70-99); Sodium, Blood 139 mmol/L (136-145); Total Protein, Blood 7.5 g/dL (6.4-8.2)
--- NOTE | 2021-10-27 15:00 | NUR ---
DISCHARGE PT A&OX3 AND IN PLEASENT MOOD, THOUGH SLOW TO RESPOND. PT PROVIDED W/ VERBAL AND WRITTEN INFORMATION. PT VERBALIZED UNDERSTANDING. MEDS FAXED TO THE [facility] VIA . [facility] PROVIDED TRANSPORT. VSS. IV DC'ED. PT BELONGINGS AND WRITTEN INSTRUCTIONS PROVIDED.
== END 2021-10-27 14:58 | disposition home or self-care (01) | DRG 86 ==
LOC: ER 16:24 → MEDS 22:05 → ER 23:15 → MEDS 23:19 → EDBEDREQ 23:58 → MEDS 10-27 14:58
PROVIDERS: Emergency Medicine; Nurse Practitioner Acute Care; Student in an Organized Health Care Education/Training Program; ADMIT Hospitalist
PROC: 0HQ0XZZ Repair Scalp Skin, External Approach (ICD-10-PCS; principal; 2021-10-26)
DX: S06.6X0A Traumatic subarachnoid hemorrhage without loss of consciousness, initial encounter (principal); N39.0 Urinary tract infection, site not specified; Z66 Do not resuscitate; S01.91XA Laceration without foreign body of unspecified part of head, initial encounter; R40.2362 Coma scale, best motor response, obeys commands, at arrival to emergency department; R40.2142 Coma scale, eyes open, spontaneous, at arrival to emergency department; G20 Parkinson's disease; R40.2252 Coma scale, best verbal response, oriented, at arrival to emergency department; F02.80 Dementia in other diseases classified elsewhere, unspecified severity, without behavioral disturbance, psychotic disturbance, mood disturbance, and anxiety; K21.9 Gastro-esophageal reflux disease without esophagitis; Z91.030 Bee allergy status; Z79.899 Other long term (current) drug therapy; W19.XXXA Unspecified fall, initial encounter
CPT/HCPCS: 36415; 70450; 72125; 80053; 81001; 85025; 85610; 85730; 86850; 86900; 86901; 87077; 87086; 87186; 93005; 93010; 96374; 99285-25; A9270; J1953

== ENCOUNTER 2022-01-21 15:58 | Emergency (ER) | payer OTHER ==
[~2022-01-21] VITALS: Ht 182.9 cm; Wt 61.2 kg
[~2022-01-21 15:58] MED LIST changes: +DOXY100 PO; +SULTRIDS PO
[2022-01-21] MEDS ORDERED: [UNRECOGNIZED DRUG - CODE] PO (16:11)
[2022-01-21] MEDS ORDERED: BISA10S PR (16:14)
[2022-01-21] MEDS ORDERED: LACT PO (16:14)
== END 2022-01-21 18:21 | disposition home or self-care (01) ==
LOC: ER 15:58
DX: S09.90XA Unspecified injury of head, initial encounter (principal); Z91.030 Bee allergy status; Z79.899 Other long term (current) drug therapy; W19.XXXA Unspecified fall, initial encounter
CPT/HCPCS: 70450; 99285-25

== ENCOUNTER 2022-02-10 20:06 | Emergency (ER) | payer OTHER ==
[~2022-02-10] VITALS: Ht 180.3 cm; Wt 49.9 kg
[~2022-02-10 20:06] MED LIST changes: +AMOCLA875 PO; +LACT PO; +LATA.005SO RIGHTEYE; +MEGESTROL ACETATE PO; +[UNRECOGNIZED DRUG - CODE] PO
== END 2022-02-10 22:57 | disposition home or self-care (01) ==
LOC: ER 20:06
DX: S00.83XA Contusion of other part of head, initial encounter (principal); S80.01XA Contusion of right knee, initial encounter; G20 Parkinson's disease; Z91.030 Bee allergy status; F02.80 Dementia in other diseases classified elsewhere, unspecified severity, without behavioral disturbance, psychotic disturbance, mood disturbance, and anxiety; Z79.899 Other long term (current) drug therapy; W18.09XA Striking against other object with subsequent fall, initial encounter
CPT/HCPCS: 70450; 72125; 73562-RT

== ENCOUNTER 2022-02-12 20:48 | Emergency (ER) | payer OTHER ==
[~2022-02-12] VITALS: Ht 182.9 cm; Wt 56.2 kg
[2022-02-12 21:08] LABS: Source, Urine Foley catheter
[2022-02-12 21:28] LABS: Appearance, Urine Hazy (Clear); Bilirubin, Urine Neg (Neg); Blood, Urine 2+ (Neg); Color, Urine Yellow (P-Yellow); Glucose Qualitative, Urine Neg (Neg); Ketones, Urine Neg (Neg); Leukocyte Esterase, Urine 3+ (Neg); Nitrite, Urine Pos (Neg); Protein, Urine 2+ (Neg); Urobilinogen, Urine NORM (Normal)
[2022-02-12 21:40] LABS: Bacteria Many /hpf; Red Blood Cells, Urine 0-2 /hpf (0-2); Squamous Epithelial Cells Not Seen /hpf (Few); White Blood Cells, Urine TNTC /hpf (0-5)
[2022-02-12 22:46] LABS: BASOPHILS ABSOLUTE AUTO 0.02 K/mm3 (0.00-0.23); BASOPHILS PERCENT AUTO 0 % (0-2); EOSINOPHILS ABSOLUTE AUTO 0.12 K/mm3 (0.00-0.68); EOSINOPHILS PERCENT AUTO 2 % (0-6); Hematocrit 37.7 % (37.0-53.0); Hemoglobin 12.6 g/dL (13.5-17.5); IMMATURE GRAN ABSOLUTE AUTO 0.04 K/mm3 (0.00-0.10); IMMATURE GRAN PERCENT AUTO 1 % (0-1); LYMPHOCYTES ABSOLUTE AUTO 1.11 K/mm3 (0.84-5.20); LYMPHOCYTES PERCENT AUTO 15 % (21-46); MONOCYTES ABSOLUTE AUTO 0.46 K/mm3 (0.16-1.47); MONOCYTES PERCENT AUTO 6 % (4-13); Mean Corpuscular HGB 30.8 pg (26.0-34.0); Mean Corpuscular HGB Conc 33.4 g/dL (31.5-36.5); Mean Corpuscular Volume 92 fL (80-100); Mean Platelet Volume 9.5 fL (9.1-12.4); NEUTROPHILS ABSOLUTE AUTO 5.87 K/mm3 (1.96-9.15); NEUTROPHILS PERCENT AUTO 77 % (41-73); Platelet Count 375 K/mm3 (150-400); RDW Coefficient Variation 13.2 % (11.7-14.2); RDW Standard Deviation 45.2 fL (35.1-46.3); Red Blood Cell Count 4.09 M/mm3 (4.30-5.90); White Blood Cell Count 7.62 K/mm3 (4.00-11.30)
[2022-02-12 23:03] LABS: Albumin, Blood 3.1 g/dL (3.4-5.0); Albumin/Globulin Ratio 0.8 (0.8-1.8); Bilirubin, Total 0.3 mg/dL (0.1-1.0); Bun/Creatinine Ratio 24.3 (12.0-20.0); Creatinine, Blood 0.66 mg/dL (0.60-1.20); Globulin, Blood 3.8 g/dL (2.2-4.0); Potassium, Blood 3.9 mmol/L (3.5-5.5); Total Protein, Blood 6.9 g/dL (6.4-8.2)
== END 2022-02-13 01:28 | disposition home or self-care (01) ==
LOC: ER 20:48
PROVIDERS: Emergency Medicine
DX: S06.5X9A Traumatic subdural hemorrhage with loss of consciousness of unspecified duration, initial encounter (principal); S06.6X9A Traumatic subarachnoid hemorrhage with loss of consciousness of unspecified duration, initial encounter; S01.81XA Laceration without foreign body of other part of head, initial encounter; R00.0 Tachycardia, unspecified; E86.0 Dehydration; G40.909 Epilepsy, unspecified, not intractable, without status epilepticus; G20 Parkinson's disease; F02.80 Dementia in other diseases classified elsewhere, unspecified severity, without behavioral disturbance, psychotic disturbance, mood disturbance, and anxiety; Z91.030 Bee allergy status; Z79.899 Other long term (current) drug therapy; W19.XXXA Unspecified fall, initial encounter
CPT/HCPCS: 70450; 72125; 73562-RT; 80053; 81001; 85025; 93005; 93010; J7030

== ENCOUNTER 2022-02-28 17:06 | Emergency (ER) | payer OTHER ==
[~2022-02-28] VITALS: Ht 170.2 cm; Wt 47.6 kg
[~2022-02-28 17:06] MED LIST changes: -BENZ100A PO
[2022-02-28 18:49] LABS: Influenza A, PCR NEGATIVE (NEGATIVE); Influenza B, PCR NEGATIVE (NEGATIVE); Resp Syncytial Virus, PCR NEGATIVE (NEGATIVE); SARS-Cov-2 (COVID-19) PCR, MMC NEGATIVE (NEGATIVE)
[2022-02-28] MEDS ORDERED: BENZ100A PO (20:20)
[2022-03-01 20:35] LABS: Calcium, Ionized (POC) 1.27 mmol/L (1.10-1.46); Chloride (POC) 113 mmol/L (98-108); Creatinine (POC) 1.1 mg/dL (0.8-1.3); Glucose (ISTAT POC) 166 mg/dL (70-99); Hemoglobin (POC) 11.6 g/dL (13.5-17.5); Potassium (POC) 4.1 mmol/L (3.5-5.5); Sodium (POC) 150 mmol/L (135-148); Total CO2 (POC) 19 mmol/L (21-32)
== END 2022-02-28 22:08 | disposition home or self-care (01) ==
LOC: ER 17:06
PROVIDERS: Emergency Medicine; Student in an Organized Health Care Education/Training Program
DX: J20.8 Acute bronchitis due to other specified organisms (principal); G20 Parkinson's disease; F02.80 Dementia in other diseases classified elsewhere, unspecified severity, without behavioral disturbance, psychotic disturbance, mood disturbance, and anxiety; Z20.822 Contact with and (suspected) exposure to COVID-19
CPT/HCPCS: 0241U; 71045; 80047; 85014; 99284-25

== ENCOUNTER → 2022-02-28 | Outpatient (CLI) | payer OTHER ==
[~2022-02-28] MED LIST changes: +BENZ100A PO
[2022-02-28 16:34] LABS: BASOPHILS ABSOLUTE AUTO 0.04 K/mm3 (0.00-0.23); BASOPHILS PERCENT AUTO 0 % (0-2); EOSINOPHILS ABSOLUTE AUTO 0.12 K/mm3 (0.00-0.68); EOSINOPHILS PERCENT AUTO 1 % (0-6); Hematocrit 46.5 % (37.0-53.0); IMMATURE GRAN ABSOLUTE AUTO 0.08 K/mm3 (0.00-0.10); IMMATURE GRAN PERCENT AUTO 1 % (0-1); LYMPHOCYTES ABSOLUTE AUTO 1.44 K/mm3 (0.84-5.20); LYMPHOCYTES PERCENT AUTO 13 % (21-46); MONOCYTES ABSOLUTE AUTO 0.51 K/mm3 (0.16-1.47); MONOCYTES PERCENT AUTO 5 % (4-13); Mean Corpuscular HGB 30.7 pg (26.0-34.0); Mean Corpuscular HGB Conc 32.3 g/dL (31.5-36.5); Mean Corpuscular Volume 95 fL (80-100); Mean Platelet Volume 9.9 fL (9.1-12.4); NEUTROPHILS ABSOLUTE AUTO 9.01 K/mm3 (1.96-9.15); NEUTROPHILS PERCENT AUTO 80 % (41-73); Platelet Count 246 K/mm3 (150-400); RDW Coefficient Variation 13.9 % (11.7-14.2); RDW Standard Deviation 48.8 fL (35.1-46.3); Red Blood Cell Count 4.88 M/mm3 (4.30-5.90)
[2022-02-28 16:47] LABS: Albumin, Blood 3.3 g/dL (3.4-5.0); Albumin/Globulin Ratio 0.6 (0.8-1.8); Bilirubin, Total 0.6 mg/dL (0.1-1.0); Bun/Creatinine Ratio 19.8 (12.0-20.0); Creatinine, Blood 0.96 mg/dL (0.60-1.20); Globulin, Blood 5.3 g/dL (2.2-4.0); Potassium, Blood 4.2 mmol/L (3.5-5.5); Total Protein, Blood 8.6 g/dL (6.4-8.2)
== END | disposition home or self-care (01) ==
LOC: LAB SHORT 16:29
PROVIDERS: Chiropractor
DX: R05.9 Cough, unspecified (principal)
CPT/HCPCS: 80053; 85025

== ENCOUNTER 2022-03-01 20:07 | Emergency (ER) | payer OTHER ==
[~2022-03-01] VITALS: Ht 182.9 cm; Wt 50.8 kg
[~2022-03-01 20:07] MED LIST changes: +BENZ100A PO
[2022-03-01 20:55] LABS: Hematocrit 41.3 % (37.0-53.0); Hemoglobin 11.7 g/dL (13.5-17.5); Mean Corpuscular HGB 30.7 pg (26.0-34.0); Mean Corpuscular HGB Conc 28.3 g/dL (31.5-36.5); Mean Platelet Volume 11.3 fL (9.1-12.4); NRBC ABSOLUTE 0.03 K/mm3 (0.00-0.02); NRBC Auto 0.2 /100 WBC (0.0-0.2); Platelet Count 188 K/mm3 (150-400); RDW Coefficient Variation 13.7 % (11.7-14.2); RDW Standard Deviation 55.3 fL (35.1-46.3); Red Blood Cell Count 3.81 M/mm3 (4.30-5.90); White Blood Cell Count 19.93 K/mm3 (4.00-11.30)
[2022-03-01 21:07] LABS: Albumin, Blood 2.2 g/dL (3.4-5.0); Albumin/Globulin Ratio 0.6 (0.8-1.8); Bilirubin, Total 0.5 mg/dL (0.1-1.0); Bun/Creatinine Ratio 30.1 (12.0-20.0); Calcium, Blood 8.6 mg/dL (8.5-10.1); Globulin, Blood 3.6 g/dL (2.2-4.0); Mean Corpuscular Volume 108 fL (80-100); Potassium, Blood 3.9 mmol/L (3.5-5.5); Total Protein, Blood 5.8 g/dL (6.4-8.2)
[2022-03-01 21:38] LABS: BAND PERCENT MAN 23 % (0-8); BASOPHILS PERCENT MAN 0 % (0-2); EOSINOPHILS PERCENT MAN 0 % (0-6); LYMPHOCYTES ABSOLUTE MAN 2.39 K/mm3 (0.84-5.20); LYMPHOCYTES PERCENT MAN 12 % (21-46); METAMYELOCYTE ABSOLUTE MAN 0.39 K/mm3 (0.00-0.00); METAMYELOCYTE PERCENT MAN 2 % (0-0); MONOCYTES ABSOLUTE MAN 1.19 K/mm3 (0.16-1.47); MONOCYTES PERCENT MAN 6 % (4-13); MYELOCYTE ABSOLUTE MAN 0.19 K/mm3 (0.00-0.00); MYELOCYTE PERCENT MAN 1 % (0-0); NEUTROPHILS ABSOLUTE MAN 15.74 K/mm3 (1.96-9.15); SEG NEUTROPHILS PERCENT MAN 56 % (41-73); TOTAL CELLS COUNTED 100
== END 2022-03-01 23:30 ==
LOC: ER 20:07
PROVIDERS: Student in an Organized Health Care Education/Training Program
DX: I46.9 Cardiac arrest, cause unspecified (principal); G20 Parkinson's disease; F02.80 Dementia in other diseases classified elsewhere, unspecified severity, without behavioral disturbance, psychotic disturbance, mood disturbance, and anxiety; J40 Bronchitis, not specified as acute or chronic; G40.909 Epilepsy, unspecified, not intractable, without status epilepticus; Z79.899 Other long term (current) drug therapy; Z91.030 Bee allergy status; Z66 Do not resuscitate
CPT/HCPCS: 36415; 80053; 85025; 93005; 93010; J7030; J7060